=== PATIENT | female | born 1955 | race Caucasian/White ===

== ENCOUNTER 2022-02-09 10:54 | Outpatient (REF) | payer MEDICARE, SELFPAY ==
[2022-02-09 11:08] LABS: MANUAL DIFF FLAG NO
[2022-02-09 11:54] LABS: Basophils Percent Auto 0.5 % (0-2); Eosinophils Percent Auto 0.5 % (0-4); Hematocrit 40.2 % (37.0-47.0); Hemoglobin 13.2 g/dl (12.0-16.0); Imm Gran Abs Auto 0.02 X10*3/uL (0.00-0.03); Imm Gran Pct Auto 0.3 % (0.0-0.4); Lymphocytes Absolute Auto 1.9 X10*3/uL (1.2-4.9); Lymphocytes Percent Auto 29.6 % (20-40); Mean Corpuscular HGB Conc 32.8 g/dl (31.0-35.0); Mean Corpuscular Volume 94.4 fL (80.0-98.0); Mean Platelet Volume 9.2 fL (9.4-12.3); Monocytes Absolute Auto 0.6 X10*3/uL (0.1-1.2); Monocytes Percent Auto 10.1 % (2-11); Neutrophils Absolute Auto 3.7 x10*3/uL (2.0-8.3); Platelet Count 260 X10*3/uL (160-400); Red Blood Count 4.26 X10*6/uL (4.20-5.50); Red Cell Distribution Width 13.2 % (11.0-16.0); White Blood Count 6.3 X10*3/uL (4.8-10.8)
[2022-02-09 12:30] LABS: Anion Gap 14 (12-20); Blood Urea Nitrogen 16 mg/dL (9-16); Calcium 9.5 mg/dL (8.4-10.2); Carbon Dioxide 30 mmol/L (22-29); Chloride 99 mmol/L (96-108); Estimated Glomerular Filt Rate > 60; Glucose Random 96 mg/dL (60-115); Iron 71 mcg/dL (30-160); Percent Iron Saturation 21 % (15-50); Potassium 5.1 mmol/L (3.3-5.1); Sodium 138 mmol/L (135-145); Total Iron Binding Capacity 334 mcg/dL (228-428); Unsaturated Iron Binding 263 ug/dL
[2022-02-09 12:34] LABS: Thyroid Stimulating Hormone 0.76 uIU/mL (0.32-4.0)
== END 2022-02-09 10:55 | disposition home or self-care (01) ==
LOC: HO.LAB 10:54
PROVIDERS: Visit Provider Psychiatry & Neurology Neurology
DX: I63.9 Cerebral infarction, unspecified (principal); M79.7 Fibromyalgia
CPT/HCPCS: 36415; 80048; 83540; 84443; 85025

== ENCOUNTER 2024-10-14 15:21 | Outpatient (REF) | payer MEDICARE, SELFPAY ==
--- OUTSIDE RECORDS SUMMARY | 2024-10-14 16:21 | XMS_ITS | Clinical Summary ---
Author Organization [facility] Address [address] [place] [address] Phone Care Team Providers Care Sap Senior Developer Name Role Phone Trever Meeks MD Primary Care Provider [phone] Allergies Active Allergy Reactions Criticality Noted Date Comments Meperidine 01/28/2022 Medications aspirin 81 mg EC tablet Take 81 mg by mouth daily. Active atorvastatin (LIPITOR) 20 mg tablet Take 20 mg by mouth daily. Active cholecalciferol , vitamin D3, 75 mcg (3,000 unit) tablet Take by mouth. Active divalproex (DEPAKOTE) [address] tablet Take 500 mg by mouth 2 (two) times a day. 12/03/2021 Active FLUoxetine (PROzac) 20 mg capsule Take 1 capsule (20 mg total) by mouth 1 (one) time each day. 01/08/2022 Active gabapentin (NEURONTIN) 600 mg tablet Take 1.5 tablets (900 mg total) by mouth daily. Active traZODone (DESYREL) 50 mg tablet TAKE 1 TABLET BY MOUTH EVERY DAY AT BEDTIME FOR 30 DAYS 11/22/2021 Active exemestane (AROMASIN) 25 mg tablet Take 1 tablet (25 mg total) by mouth every other day 45 tablet 08/15/2024 5 Active amLODIPine (NORVASC) 10 mg tablet Take 1 tablet (10 mg total) by mouth 1 (one) time each day. 30 each 09/15/2024 5 Active Active Problems Problem Noted Date Diagnosed Date Fibromyalgia 08/15/2024 Malignant neoplasm of upper- outer quadrant of left breast in female, estrogen receptor positive 05/17/2024 Intractable nausea 05/17/2024 Acute midline low back pain without sciatica Encounters Date Type Department Care Team Description 09/19/2024 12:27 PM EST - 09/19/2024 11:59 PM EST Hospital Encounter [facility] MRI [address] [place] [address] Cerebral infarction, unspecified (CMS/HCC) Discharge Disposition: Home or Self Care 09/15/2024 1:39 PM EST - 09/15/2024 11:21 PM EST Emergency [facility] Emergency [address] [place] [phone] Stephen Kulkarni MD Dizziness (Primary Dx) Discharge Disposition: Home or Self Care 08/15/2024 1:15 PM EST Office Visit [facility] Hematology Oncology [address] [place] [phone] Maylin Feliciano MD Malignant neoplasm of upper-outer quadrant of left breast in female, estrogen receptor positive (CMS/HCC) (Primary Dx); Acute midline low back pain without sciatica; Fibromyalgia 07/18/2024 Telephone [facility] Hematology Oncology [address] [place] [phone] Maylin Feliciano MD from Last 3 Months Immunizations Name Administration Dates Next Due Pfizer SARS-CoV-2 COVID-19, mRNA, LNP-S, preservative free 08/10/2021,10/30/2020,10/09/2020 Surgical History Surgery Date Site/Laterality Comments BREAST MASS EXCISION PROCEDURE:BREAST MASS EXCISION Medical History Medical History Date Comments History of stroke DX:History of stroke Hypertension DX:Hypertension Seizure disorder (CMS/HCC) DX:Se izure disorder (HCC) Stroke (CMS/HCC) DX:Stroke (HCC) Family History Medical History Relation Name Comments Cancer Mother Cancer Sister Relation Name Status Comments Mother Sister Social History Tobacco Use Types Packs/Day Years Used Date Smoking Tobacco: Former Cigarettes Q uit: 09/11/2021 Smokeless Tobacco: Never Alcohol Use Standard Drinks/Week Comments Yes 14 (1 standard drink = 0.6 oz pu re alcohol) Comments Unknown Sex and Gender Information Value Date Recorded Sex Assigned at Not on file Legal Sex Female 12:05 AM EST Gender Identity Not on file Sexual Orientation Not on file Obstetrics History Last Filed Vital Signs Vital Sign Reading Time Taken Comments Blood Pressure 181/72 09/15/2024 10:22 PM EST Pulse 69 09/15/2024 10:22 PM EST Temperature 37.1 ??C (98.8 ??F) 09/15/2024 4:15 PM ES T Respiratory Rate 20 09/15/2024 10:22 PM EST Oxygen Saturation 99% 09/15/2024 10:22 PM EST Inhaled Oxygen Concentration - - Weight 70.3 kg (155 lb) 09/15/2024 11:59 AM EST Height 160 cm (5' 3 ) 09/15/2024 11:59 AM EST Body Mass Index 27.46 09/15/2024 11:59 AM EST Plan of Treatment Upcoming Encounters Date Type Department Care Team (Late st Contact Info) Description 11/13/2024 11:00 AM EDT Office Visit [facility] Hematology Oncology [address] [place] [phone] Maylin Prasad MD [address] [place] [phone] 11/28/2024 1:40 PM EDT Office Visit [facility] [address] [place] [phone] Ilsa Red MD [address] [place] [address] [address] [place] [address] 12/25/2024 1:00 PM EDT [facility]ointment [facility] at [address] [phone] Health Maintenance Due Date Last Done Comments Zoster Vaccines (1 of 2) 1973 RSV Immunization Patients 60+ Years Old (1 - Risk 60-74 years 1-dose series) 2014 DTaP,Tdap,and Td Vaccines (2 - Td or Tdap) 03/08/2020 02/09/2020 Cholesterol Screening (Lipid Panel) 08/13/2022 Colorectal Cancer Screening: Colonoscopy 08/13/2022 Depression Screening 08/13/2022 Falls Risk Assessment 08/13/2022 Hepatitis C Screening 08/13/2022 Social Influencers of Health Screening 08/13/2022 Medicare Annual Wellness Visit 05/25/2023 05/25/2022 COVID-19 Vaccine ( season) 2024 06/22/2022, 08/10/2021, 10/30/2020, Additional history exists Influenza Vaccine (#1) 2024 3, 06/22/2022, 09/12/2021, Additional history exists Breast Cancer Screening 06/26/2025 06/26/20 23, 12/03/2021, 07/27/2020 Hypertension/CHF/CAD Annual BMP Blood Test 09/15/2025 09/15/2024 Osteoporosis Screening (Bone Density Screening) 03/22/2032 03/22/2022 Pneumococcal Vaccine: 50+ Years Completed 05/30/2023, 11/14/2019 HIB Vaccines Aged Out No longer eligi ble based on patient's age to complete this topic HPV Vaccines Aged Out No longer eligi ble based on patient's age to complete this topic Hepatitis A Vaccines Aged Out No long er eligible based on patient's age to complete this topic Hepatitis B Vaccines Aged Out No long er eligible based on patient's age to complete this topic IPV Vaccines Aged Out No longer eligi ble based on patient's age to complete this topic MMR Vaccines Aged Out No longer eligi ble based on patient's age to complete this topic Meningococcal ACWY Vaccine Aged Out N o longer eligible based on patient's age to complete this topic Meningococcal B Vacine Aged Out No lo nger eligible based on patient's age to complete this topic RSV Immunization Patients Under 20 months Aged Out No longer eligible based on patient's age to complete this topic Varicella Vaccines Aged Out No longer eligible based on patient's age to complete this topic Procedures Procedure Name Priority Date/Time Associated Diagnosis Comments MR BRAIN WO CONTRAST Routine 09/19/2024 2:46 PM EST Cerebral infarction, unspecified (CMS/HCC) POCT GLUCOSE BLOOD Routine 09/15/2024 4: [address] ANGIO HEAD/NECK WO AND/OR W CONTRAST STAT 09/15/2024 3:15 PM EST PROTHROMBIN TIME WITH INR STAT 09/15/2024 2:07 PM EST TROPONIN I HIGH SENSITIVITY STAT 09/15/2024 2:07 PM EST CBC WITH AUTO DIFFERENTIAL STAT 09/15/2024 11:55 AM EST VALPROIC ACID LEVEL, TOTAL STAT 09/15/2024 11:55 AM EST TROPONIN I HIGH SENSITIVITY STAT 09/15/2024 11:55 AM EST MAGNESIUM STAT 09/15/2024 11:55 AM EST BASIC METABOLIC PANEL STAT 09/15/2024 11:55 AM EST CBC AND DIFFERENTIAL STAT 09/15/2024 11:55 AM EST ECG 12-LEAD STAT 09/15/2024 11:51 AM EST ECG ANNOTATED 09/15/2024 [facility] DEXA AXIAL SKELETON Routine 03/22/2022 4:15 PM EDT Asymptomatic menopausal state [facility] SCREENING DIGITAL Routine 12/03/2021 3:13 PM EDT Encounter for screening mammogram for malignant neoplasm of breast from Last 3 Months or Most Recently Relevant to Health Maintenance Results * MR Brain wo Contrast (09/19/2024 2:46 PM EST) Anatomical Region Laterality Modality Head and Neck Magnetic Resonan ce 09/20/2024 11:2 3 AM EST Impressions 09/20/2024 11:35 AM EST Impression: No acute intracranial findings. Small area of encephalomalacia in the left thalamus compatible with a previous small vessel infarct. ??This appears similar to the comparison CT on 09/15/2024. Mild chronic microvascular ischemic changes of the supratentorial white matter. -------- FINAL REPORT -------- Dictated By: Keshawn Patel Dictated Date: 09/20/2024 11:23 ET Assigned Physician: Keshawn Patel Reviewed and Electronically Signed By: Keshawn Patel Signed Date: 09/20/2024 11:35 ET Workstation ID: [id number] Transcribed By: Self Edit Transcribed Date: 09/20/2024 11:24 ET Narrative 09/20/2024 11:35 AM EST PROCEDURE: Noncontrast MRI of the brain. HISTORY: THALAMIC INFARCTION. COMPARISON: CT 09/15/2024. TECHNIQUE: Multiplanar multisequence MRI of the brain without intravenous contrast administration. FINDINGS: BRAIN: No diffusion abnormality. ??No mass or extra-axial fluid collection. ??No hydrocephalus. ??The major intracranial flow voids are preserved. Age commensurate ventricles and sulci. ??Foci of T2 prolongation in the supratentorial white matter are nonspecific but likely sequela of mild chronic microvascular ischemic disease. ??Small area of encephalomalacia suggesting sequela of a previous infarct in the left thalamus, unchanged compared with the 09/15/2024 CT. ORBITS: Normal. SINUSES/MASTOIDS: Hypoplastic frontal sinuses. ??Minimal mucosal thickening in the frontal sinuses, ethmoid air cells, and maxillary antra. ??Small mucous retention cysts in the left maxillary antrum. ??Trace bilateral mastoid fluid. CALVARIUM: Normal. OTHER: The visualized skull base soft tissues are normal. ??Partially visible degenerative changes of the cervical spine. Procedure Note Keshawn Patel MD - 09/20/2024 PROCEDURE: Noncontrast MRI of the brain. HISTORY: THALAMIC INFARCTION. COMPARISON: CT 09/15/2024. TECHNIQUE: Multiplanar multisequence MRI of the brain without intravenouscontrast administration. FINDINGS: BRAIN: No diffusion abnormality. No mass or extra-axial fluid collection.No hydrocephalus. The major intracranial flow voids are preserved. Agecommensurate ventricles and sulci. Foci of T2 prolongation in thesupratentorial white matter are nonspecific but likely sequela of mildchronic microvascular ischemic disease. Small area of encephalomalaciasuggesting sequela of a previous infarct in the left thalamus, unchangedcompared with the 09/15/2024 CT. ORBITS: Normal. SINUSES/MASTOIDS: Hypoplastic frontal sinuses. Minimal mucosal thickeningin the frontal sinuses, ethmoid air cells, and maxillary antra. Smallmucous retention cysts in the left maxillary antrum. Trace bilateralmastoid fluid. CALVARIUM: Normal. OTHER: The visualized skull base soft tissues are normal. Partiallyvisible degenerative changes of the cervical spine. IMPRESSION: Impression: No acute intracranial findings. Small area of encephalomalacia in the left thalamus compatible with aprevious small vessel infarct. This appears similar to the comparison CTon 09/15/2024. Mild chronic microvascular ischemic changes of the supratentorial whitematter. -------- FINAL REPORT -------- Dictated By: Keshawn Patel Dictated Date: 09/20/2024 11:23 ET Assigned Physician: Keshawn Patel Reviewed and Electronically Signed By: Keshawn Patel Signed Date: 09/20/2024 11:35 ET Workstation ID: [id number] Transcribed By: Self Edit Transcribed Date: 09/20/2024 11:24 ET Nicol Marrero NP IMG MRI PROCEDURES Final Result * (ABNORMAL) POCT Glucose, blood (09/15/2024 4:19 PM EST) Glucose POCT 103(H) 70 - 100 mg/dL 09/15/2024 4:19 PM EST [facility] Blood Capillary blood specimen / Unknown 09/15/2024 4:19 PM EST 09/15/2024 4:20 PM EST Stephen Kulkarni MD LAB POINT OF CARE TE ST DOCKED DEVICE UNSOLICITED RESULTS Final Result [facility] [address] [place] [address], [place] [phone] * CT Angio Head/Neck wo and/or w Contrast (09/15/2024 3:15 PM EST) Anatomical Region Laterality Modality Head and Neck Computed Tomogra phy 09/15/2024 3:35 PM EST Impressions 09/15/2024 3:46 PM EST 1. ??Brain appears normal without hemorrhage. 2. ??CT angiogram of the brain appears normal without occlusion or significant stenosis. 3. ??Beaded appearance of the internal carotid arteries bilaterally suggestive of fibromuscular dysplasia without significant stenosis. 4. ??Calcified plaque at the left carotid bulb with only minimal stenosis. -------- FINAL REPORT -------- Dictated By: Sixto Jimenez Dictated Date: 09/15/2024 15:35 ET Assigned Physician: Sixto Jimenez Reviewed and Electronically Signed By: Sixto Jimenez Signed Date: 09/15/2024 15:46 ET Workstation ID: [id number] Transcribed By: Self Edit Transcribed Date: 09/15/2024 15:35 ET Narrative 09/15/2024 3:[address] brain and CT angiogram of the head and neck. HISTORY: Dizziness Comparison: None Technique: Preliminary CT imaging of the brain performed without IV contrast followed by contrast enhanced dynamic thin section volumetric imaging through the brain and neck following injection of 90 mL Isovue 370. Axial source images of the brain follow by sagittal and coronal reformations and three-dimensional angiographic reformations created on an independent workstation by undersigned radiologist. DOSE: CTDIvol: 631/45.4/19.7/68.2mGy. ??Total exam DLP: 3440.8mGy-cm FINDINGS: CT brain with and without IV contrast: Brain appears within normal limits for age. ??Only minimal volume loss and white matter changes are noted. ??The ventricles are normal in size. ??Midbrain and cerebellum appear normal. ??Surrounding soft tissues appear normal. ??Paranasal sinuses are patent. ??Mastoid air cells are patent bilaterally. CT angiography of the brain: Intracranial vasculature appears patent. ??No thrombosis. ??No aneurysm or malformation. CT angiography of the neck: Mild plaque is noted at the left carotid bulb without significant stenosis. ??Both internal carotid arteries demonstrate a mildly beaded appearance without stenosis. ??Vertebral arteries appear normal bilaterally. Aortic arch appears normal. ??Subclavian arteries appear patent. Limited views of the lung apices appear within normal limits. ??Soft tissues of the neck appear normal. ??No significant lymphadenopathy. ??The glands of the neck appear normal. ??Degenerative changes of the spine. Procedure Note Sixto Jimenez MD - 09/15/[address] angiogram of the head and neck. HISTORY: Dizziness Comparison: None Technique: Preliminary CT imaging of the brain performed without IVcontrast followed by contrast enhanced dynamic thin section volumetricimaging through the brain and neck following injection of 90 mL [id number]. Axial source images of the brain follow by sagittal and coronalreformations and three-dimensional angiographic reformations created on anindependent workstation by undersigned radiologist. DOSE: CTDIvol: 631/45.4/19.7/68.2mGy. Total exam DLP: 3440.8mGy-cm FINDINGS: CT brain with and without IV contrast: Brain appears within normal limits for age. Only minimal volume loss andwhite matter changes are noted. The ventricles are normal in size.Midbrain and cerebellum appear normal. Surrounding soft tissues appearnormal. Paranasal sinuses are patent. Mastoid air cells are patentbilaterally. CT angiography of the brain: Intracranial vasculature appears patent. No thrombosis. No aneurysm ormalformation. CT angiography of the neck: Mild plaque is noted at the left carotid bulb without significantstenosis. Both internal carotid arteries demonstrate a mildly beadedappearance without stenosis. Vertebral arteries appear normalbilaterally. Aortic arch appears normal. Subclavian arteries appear patent. Limited views of the lung apices appear within normal limits. Softtissues of the neck appear normal. No significant lymphadenopathy. Theglands of the neck appear normal. Degenerative changes of the spine. IMPRESSION: 1. Brain appears normal without hemorrhage. 2. CT angiogram of the brain appears normal without occlusion orsignificant stenosis. 3. Beaded appearance of the internal carotid arteries bilaterallysuggestive of fibromuscular dysplasia without significant stenosis. 4. Calcified plaque at the left carotid bulb with only minimalstenosis. -------- FINAL REPORT -------- Dictated By: Sixto Jimenez Dictated Date: 09/15/2024 15:35 ET Assigned Physician: Sixto Jimenez Reviewed and Electronically Signed By: Sixto Jimenez Signed Date: 09/15/2024 15:46 ET Workstation ID: [id number] Transcribed By: Self Edit Transcribed Date: 09/15/2024 15:35 ET Stephen Kulkarni MD IMG CT PROCEDURES Final Result * Troponin I high sensitivity (09/15/2024 2:07 PM EST) Only the most recent of2 resultswithin the time period is included. [facility] High Sensitivity Troponin I 22 <=54 ng/L LAB CHEMISTRY METHOD 09/15/2024 2:36 PM EST [facility] Blood Venous blood specimen / Unknown Venipuncture / Unknown 09/15/2024 2:07 PM EST 09/15/2024 2:14 PM EST Narrative [facility] - 09/15/2024 2:36 PM EST High levels of biotin in samples may falsely decrease hsTroponin values. ??Use caution when interpreting hsTroponin results in patients taking biotin who exhibit renal impairment (eGFR <60) or in patients taking more than 20 mg/day of biotin. Stephen Kulkarni MD LAB BLOOD ORDERABLES Final Resu lt [facility] [address] [place] [address], [place] [phone] * Protime-INR (09/15/2024 2:07 PM EST) [facility] Protime 11.5 10.6 - 13.9 sec LAB COAGULATION METHOD 09/15/2024 2:26 PM EST [facility] INR 0.9 LAB COAGULATION METHOD 09/15/2024 2:26 PM EST [facility] Blood Venous blood specimen / Unknown Venipuncture / Unknown 09/15/2024 2:07 PM EST 09/15/2024 2:14 PM EST Stephen Carolina Kulkarni MD LAB BLOOD ORDERABLES Final Resu lt [facility] [address] [place] [address], * (ABNORMAL) CBC auto differential (09/15/2024 11:55 AM EST) WBC 9.3 4.8 - 10.8 K/mcL LAB HEMETOLOGY METHOD 09/15/2024 12:23 PM [facility] RBC 5.00(H) 3.80 - 4.80 M/mcL LAB HEMETOLOGY METHOD 09/15/2024 12:23 PM [facility] Hemoglobin 15.3 11.5 - 16.0 g/dL LAB HEMETOLOGY METHOD 09/15/2024 12:23 PM [facility] Hematocrit 46.2 35.0 - 47.0 % LAB HEMETOLOGY METHOD 09/15/2024 12:23 PM [facility] MCV 93.1 79.0 - 98.0 FL LAB HEMETOLOGY METHOD 09/15/2024 12:23 PM [facility] MCH 30.8 27.0 - 32.0 pcg LAB HEMETOLOGY METHOD 09/15/2024 12:23 PM [facility] MCHC 33.1 32.0 - 37.0 g/dL LAB HEMETOLOGY METHOD 09/15/2024 12:23 PM [facility] RDW 12.5 11.0 - 15.0 % LAB HEMETOLOGY METHOD 09/15/2024 12:23 PM [facility] Platelets 278 130 - 400 K/mcL LAB HEMETOLOGY METHOD 09/15/2024 12:23 PM [facility] MPV 8.9 7.0 - 11.0 FL LAB HEMETOLOGY METHOD 09/15/2024 12:23 PM [facility] NRBC 0.0 <1.0 % LAB HEMETOLOGY METHOD 09/15/2024 12:23 PM [facility] NRBC Absolute 0.00 <0.10 K/mcL LAB HEMETOLOGY METHOD 09/15/2024 12:23 PM [facility] Neutrophils Relative 69.4 % LAB HEMETOLOGY METHOD 09/15/2024 12:23 PM [facility] Lymphocytes Relative 19.8 % LAB HEMETOLOGY METHOD 09/15/2024 12:23 PM [facility] Monocytes Relative 9.9 % LAB HEMETOLOGY METHOD 09/15/2024 12:23 PM [facility] Eosinophils Relative 0.1 % LAB HEMETOLOGY METHOD 09/15/2024 12:23 PM [facility] Basophils Relative 0.3 % LAB HEMETOLOGY METHOD 09/15/2024 12:23 PM [facility] Immature Granulocytes Relative 0.5 % LAB HEMETOLOGY METHOD 09/15/2024 12:23 PM [facility] Neutrophils Absolute 6.48 1.50 - 7.00 K/mcL LAB HEMETOLOGY METHOD 09/15/2024 12:23 PM [facility] Lymphocytes Absolute 1.85 1.00 - 5.00 K/mcL LAB HEMETOLOGY METHOD 09/15/2024 12:23 PM [facility] Monocytes Absolute 0.92 0.20 - 1.00 K/mcL LAB HEMETOLOGY METHOD 09/15/2024 12:23 PM [facility] Eosinophils Absolute 0.01 0.00 - 0.50 K/mcL LAB HEMETOLOGY METHOD 09/15/2024 12:23 PM EST [facility] Basophils Absolute 0.03 0.00 - 0.20 K/[facility] LAB HEMETOLOGY METHOD 09/15/2024 12:23 PM EST [facility] Immature Granulocytes Absolute 0.05(H) 0.00 - 0.03 K/mcL LAB HEMETOLOGY METHOD 09/15/2024 12:23 PM EST [facility] Blood Venous blood specimen / Unknown Venipuncture / Unknown 09/15/2024 11:55 AM EST 09/15/2024 12:14 PM EST us Stephen Kulkarni MD LAB BLOOD ORDERABLES Final Resu lt [facility] [address] [place] [address], [place] [phone] * (ABNORMAL) Magnesium (09/15/2024 11:55 AM EST) Magnesium 1.6(L) 1.9 - 2.6 mg/dL LAB CHEMISTRY METHOD 09/15/2024 12:39 PM EST [facility] Blood Venous blood specimen / Unknown Venipuncture / Unknown 09/15/2024 11:55 AM EST 09/15/2024 12:14 PM EST us Stephen Kulkarni MD LAB BLOOD ORDERABLES Final Resu lt [facility] [address] [place] [address], [place] [phone] * Valproic acid level, total (09/15/2024 11:55 AM EST) Valproic Acid, Total 84 50 - 100 mcg/mL LAB CHEMISTRY METHOD 09/15/2024 12:39 PM EST [facility] Blood Venous blood specimen / Unknown Venipuncture / Unknown 09/15/2024 11:55 AM EST 09/15/2024 12:14 PM EST us Stephen Carolina Kulkarni MD LAB BLOOD ORDERABLES Final Resu lt [facility] [address] [place] [address], [place] [phone] * (ABNORMAL) Basic metabolic panel (09/15/2024 11:55 AM EST) Sodium 132(L) 133 - 145 mmol/L LAB CHEMISTRY METHOD 09/15/2024 12:39 PM [facility] Potassium 4.4 3.5 - 5.5 mmol/L LAB CHEMISTRY METHOD 09/15/2024 12:39 PM [facility] Chloride 97 96 - 110 mmol/L LAB CHEMISTRY METHOD 09/15/2024 12:39 PM [facility] CO2 31 21 - 32 mmol/L LAB CHEMISTRY METHOD 09/15/2024 12:39 PM [facility] Anion Gap 4 3 - 11 LAB CHEMISTRY METHOD 09/15/2024 12:39 PM [facility] Glucose 132(H) 70 - 100 mg/dL LAB CHEMISTRY METHOD 09/15/2024 12:39 PM [facility] BUN 10 5 - 25 mg/dL LAB CHEMISTRY METHOD 09/15/2024 12:39 PM [facility] Creatinine 0.81 0.50 - 1.10 mg/dL LAB CHEMISTRY METHOD 09/15/2024 12:39 PM [facility] eGFR 78 >=60 mL/min/1. 73m2 LAB CHEMISTRY METHOD 09/15/2024 12:39 PM [facility] Comment:Calculation based on the??Chronic Kidney Disease Epidemiology Collaboration (CKD-EPI) equation refit??without adjustment for race. BUN/Creatinine Ratio 12.3 LAB CHEMISTRY METHOD 09/15/2024 12:39 PM [facility] Calcium 9.9 8.5 - 10.5 mg/dL LAB CHEMISTRY METHOD 09/15/2024 12:39 PM EST [facility] Blood Venous blood specimen / Unknown Venipuncture / Unknown 09/15/2024 11:55 AM EST 09/15/2024 12:14 PM EST Stephen Kulkarni MD LAB BLOOD ORDERABLES Final Resu lt Performing Organization Address City/[facility]/ZIP Co de Phone Number [facility]) [facility] [address] [place] [address], [place] [phone] * ECG 12 lead (09/15/2024 11:51 AM EST) Ventricular Rate ECG 74 BPM GEMUSE Atrial Rate 74 BPM GEMUSE P-R Interval 126 ms GEMUSE QRS Duration 84 ms GEMUSE Q-T Interval 380 ms GEMUSE QTc 421 ms GEMUSE P Wave [place] 6 degrees GEMUSE R [place] 21 degrees GEMUSE T [place] 36 degrees GEMUSE ECG Interpretation Normal sinus rhythm Low voltage QRS Normal ECG When compared with ECG of 17-JAN-2022 07:59, No significant change was found Confirmed by Adri RODRIGUEZ, JOAQUINA ([id number]) on 09/15/2024 3:44:03 PM GEMUSE 09/15/2024 11:5 1 AM EST 09/15/2024 3:44 PM EST Stephen Kulkarni MD ECG ORDERABLES Final Result Performing Organization Address City/[facility]/ZIP Co de Phone Number GEMUSE * ECG-Annotated (09/15/2024) Provider Danna GRULLON ECG ORDERABLES Final Result * TAY DEXA AXIAL SKELETON (03/22/2022 4:15 PM EDT) Anatomical Region Laterality Modality Mammography 03/22/2022 9:59 AM EDT Narrative 03/22/2022 4:15 PM EDT [id number] [facility] Diagnostic Imaging Department [address] [place] [address] Patient: ??MABEL MCCOY David ?/Age/Sex: 1955 - 66 - F Unit#: ??[id number] ? Location/Status: ??SPDIMAM/REG CLI ? Mnemonic/Ordering Site: ??MAMDEXAAX/SPMAM Ordering Physician: ??MAYLIN VERA MD [facility] Dexa Axial Skeleton - 03/22/22 - 1029 [facility] Dexa Axial Skeleton INDICATION: Postmenopausal, history of breast Technique: Bone densitometry was performed utilizing dual energy x-ray absorptiometry (DEXA). The lumbar spine is evaluated in the AP projection from L1 through L4, though L3 was omitted because of endplate sclerosis. The proximal femora are evaluated in the AP projection bilaterally. The patient is taking vitamin D supplements. COMPARISON: None FINDINGS: AP spine: Bone mineral density: 1.192 gm/cm2 T-score: 0.2 Right femoral neck: Bone mineral density: 0.861 gm/cm2 T-score: -1.4 IMPRESSION: Findings suggesting osteopenia, placing the patient at risk for fracture. The FRAX result suggests a 10 year probability of major osteoporotic fracture of 15 % and hip fracture of 1.4%. 10 year probability of osteoporotic fracture may be lower than FRAX estimate if patient has received treatment. [id number] Dictating Physician: ??BIRDIE TORRES MD Electronically Signed by: ??BIRDIE TORRES MD Dic Date/Time: ??03/22/22 1614 Sign date/Time: ??03/22/22 1615 Procedure Note Birdie Torres MD - 08/24/2022 [facility] Diagnostic Imaging Department [address] [place] [id number] Patient: MABEL MCCOY D.O.B./Age/Sex: 1955 - 66 - F Unit#: [id number] Location/Status: SPDIMA/REG CLI [facility] Ordering Physician: MAYLIN VERA MD [facility] Dexa Axial Skeleton - 03/22/22 - 1029 [facility] Dexa Axial Skeleton INDICATION: Postmenopausal, history of breast Technique: Bone densitometry was performed utilizing dual energy x-ray absorptiometry (DEXA). The lumbar spine is evaluated in the AP projectionfrom L1 through L4, though L3 was omitted because of endplate sclerosis. Theproximal femora are evaluated in the AP projection bilaterally. The patient is taking vitamin D supplements. COMPARISON: None FINDINGS: AP spine: Bone mineral density: 1.192 gm/cm2 T-score: 0.2 Right femoral neck: Bone mineral density: 0.861 gm/cm2 T-score: -1.4 IMPRESSION: Findings suggesting osteopenia, placing the patient at risk forfracture. The FRAX result suggests a 10 year probability of major osteoporoticfracture of 15 % and hip fracture of 1.4%. 10 year probability of osteoporotic fracture may be lower than FRAXestimate if patient has received treatment. [id number] Dictating Physician: BIRDIE TORRES MD Electronically Signed by: BIRDIE TORRES MD Dic Date/Time: 03/22/22 161 Sign date/Time: 03/22/22 161 Maylin Prasad MD IMG BI PROCEDURES F inal Result * TAY SCREENING DIGITAL (12/03/2021 3:13 PM EDT) Anatomical Region Laterality Modality Mammography 12/03/2021 1:38 PM EDT Narrative 12/03/2021 3:13 PM EDT [facility] Diagnostic Imaging Department [address] [place], [place] [id number] Patient: ??MABEL MCCOY ?/Age/Sex: 1955 - 66 - F Unit#: ??[id number] ? Location/Status: ??SPDIMAM/REG CLI ? Mnemonic/Ordering Site: ??DIGSC/SPMAM Ordering Physician: ??TREVER MEEKS MD Tay Screening Digital - 12/03/21 - 1416 EXAM: Tay Screening Digital EXAM DATE AND TIME: 12/03/2021 2:18 PM HISTORY: ??Screening. Excisional biopsy of the right breast in 2011, pathology benign. Mother had breast carcinoma at age 90. COMPARISON: ??07/27/20, 05/29/17, 06/11/15 TECHNIQUE: CC and MLO views of both breasts were obtained using full field digital mammography. Bilateral digital breast tomosynthesis was performed in the MLO projection. Computer aided detection with the GFI Software 7.2-H was employed. TISSUE DENSITY: b. There are scattered areas of fibroglandular density. FINDINGS: A 6 mm round asymmetry is seen in the upper anterior left breast on the MLO views, close to the skin line, equivocally seen straight back from the nipple in the CC view. CC tomosynthesis views are recommended for further assessment, to be followed by targeted ultrasound. Mild asymmetry in the anterior right breast is unchanged and consistent with surgical scar. grouped microcalcifications or areas of architectural distortion are seen. The skin and vascularity are unremarkable. IMPRESSION: 1. Left breast asymmetry, for which additional views and targeted ultrasound are recommended. The patient will be called back. 2. Stable mammographic appearance of the right breast. No evidence of malignancy is seen. BI-RADS: ??Category 0: Incomplete - Need Additional Imaging Evaluation RECOMMENDATION(S): 1: Special mammographic view(s) needed LEFT 2: Ultrasound LEFT 21061, [id number] 3340F, 7025F Dictating Physician: ??JACI SALAS MD Electronically Signed by: ??JACI SALAS MD Dic Date/Time: ??12/03/21 1511 Sign date/Time: ??12/03/21 1513 Procedure Note Jaci Salas MD - 08/24/2022 [facility] Diagnostic Imaging Department [address] [place] [address] Patient: JUAREZMABEL DAVIS David BoothB./Age/Sex: 1955 - 66 - F Unit#: [id number] Location/Status: [facility] CLI Mnemonic/Ordering Site: [facility] Ordering Physician: TREVER MEEKS MD [facility] Screening Digital - 12/03/21 - 141 EXAM: [facility] Screening Digital EXAM DATE AND TIME: 12/03/2021 2:18 PM HISTORY: Screening. Excisional biopsy of the right breast in 2011,pathology benign. Mother had breast carcinoma at age 90. COMPARISON: 07/27/20, 05/29/17, 06/11/15 TECHNIQUE: CC and MLO views of both breasts were obtained using fullfield digital mammography. Bilateral digital breast tomosynthesis was performedin the MLO projection. Computer aided detection with the GFI Software 7.2-Planet Dailyas employed. TISSUE DENSITY: b. There are scattered areas of fibroglandular density. FINDINGS: A 6 mm round asymmetry is seen in the upper anterior left breast on theMLO views, close to the skin line, equivocally seen straight back from thenipple in the CC view. CC tomosynthesis views are recommended for furtherassessment, to be followed by targeted ultrasound. Mild asymmetry in the anterior right breast is unchanged and consistentwith surgical scar. grouped microcalcifications or areas of architecturaldistortion are seen. The skin and vascularity are unremarkable. IMPRESSION: 1. Left breast asymmetry, for which additional views and targetedultrasound are recommended. The patient will be called back. 2. Stable mammographic appearance of the right breast. No evidence of malignancy is seen. BI-RADS: Category 0: Incomplete - Need Additional Imaging Evaluation RECOMMENDATION(S): 1: Special mammographic view(s) needed LEFT 2: Ultrasound LEFT 27737, [id number] 3340F, 7025F Dictating Physician: JACI SALAS MD Electronically Signed by: JACI SALAS MD Dic Date/Time: 12/03/21 1511 Sign date/Time: 12/03/21 1513 Trever Meeks MD IMG BI PROCEDURES Final Result from Last 3 Months or Most Recently Relevant to Health Maintenance Insurance MEDICARE [facility] Advance Directives Documents on File Type Date Recorded Patient Director Community Organization Expl anation Health Care Decision (hx) 01/17/2022 AD BOO DIRECTIVE Health Care Decision (hx) 01/17/2022 AD BOO DIRECTIVE Health Care Decision (hx) 01/17/2022 AD BOO DIRECTIVE Health Care Decision (hx) 01/17/2022 AD BOO DIRECTIVE Health Care Decision (hx) 01/17/2022 AD BOO DIRECTIVE Health Care Decision (hx) 01/17/2022 AD BOO DIRECTIVE Health Care Decision (hx) 01/17/2022 AD BOO DIRECTIVE Health Care Decision (hx) 01/17/2022 AD BOO DIRECTIVE Health Care Decision (hx) 01/17/2022 AD BOO DIRECTIVE Health Care Decision (hx) 01/17/2022 AD BOO DIRECTIVE Health Care Decision (hx) 01/17/2022 AD BOO DIRECTIVE Health Care Decision (hx) 01/17/2022 AD BOO DIRECTIVE Health Care Decision (hx) 01/17/2022 AD BOO DIRECTIVE Health Care Decision (hx) 01/17/2022 AD BOO DIRECTIVE Health Care Decision (hx) 01/17/2022 AD BOO DIRECTIVE Health Care Decision (hx) 01/17/2022 AD BOO DIRECTIVE Health Care Decision (hx) 01/17/2022 AD BOO DIRECTIVE Health Care Decision (hx) 01/17/2022 AD BOO DIRECTIVE Health Care Decision (hx) 01/17/2022 AD BOO DIRECTIVE Health Care Decision (hx) 01/17/2022 AD BOO DIRECTIVE Health Care Decision (hx) 01/17/2022 AD BOO DIRECTIVE Health Care Decision (hx) 01/17/2022 AD BOO DIRECTIVE Health Care Decision (hx) 01/17/2022 AD BOO DIRECTIVE Health Care Decision (hx) 12/04/2013 AD BOO DIRECTIVE Health Care Decision (hx) 12/04/2013 AD BOO DIRECTIVE Health Care Decision (hx) 12/04/2013 AD BOO DIRECTIVE Health Care Decision (hx) 12/04/2013 AD BOO DIRECTIVE Health Care Decision (hx) 12/04/2013 AD BOO DIRECTIVE Health Care Decision (hx) 12/04/2013 AD BOO DIRECTIVE Health Care Decision (hx) 12/04/2013 AD BOO DIRECTIVE Health Care Decision (hx) 12/04/2013 AD BOO DIRECTIVE Health Care Decision (hx) 12/04/2013 AD BOO DIRECTIVE Health Care Decision (hx) 12/04/2013 AD BOO DIRECTIVE Health Care Decision (hx) 12/04/2013 AD BOO DIRECTIVE Health Care Decision (hx) 12/04/2013 AD BOO DIRECTIVE Health Care Decision (hx) 12/04/2013 AD BOO DIRECTIVE Health Care Decision (hx) 12/04/2013 AD BOO DIRECTIVE Health Care Decision (hx) 12/04/2013 AD BOO DIRECTIVE Health Care Decision (hx) 12/04/2013 AD BOO DIRECTIVE Health Care Decision (hx) 12/04/2013 AD BOO DIRECTIVE Health Care Decision (hx) 12/04/2013 AD BOO DIRECTIVE Health Care Decision (hx) 12/04/2013 AD BOO DIRECTIVE Health Care Decision (hx) 12/04/2013 AD BOO DIRECTIVE Health Care Decision (hx) 12/04/2013 AD BOO DIRECTIVE Health Care Decision (hx) 12/04/2013 AD BOO DIRECTIVE Health Care Decision (hx) 12/04/2013 AD BOO DIRECTIVE Health Care Decision (hx) 12/04/2013 AD BOO DIRECTIVE Health Care Decision (hx) 12/04/2013 AD BOO DIRECTIVE Health Care Decision (hx) 12/04/2013 AD BOO DIRECTIVE Health Care Decision (hx) 12/04/2013 AD BOO DIRECTIVE Health Care Decision (hx) 12/04/2013 AD BOO DIRECTIVE Health Care Decision (hx) 12/04/2013 AD BOO DIRECTIVE Health Care Decision (hx) 12/04/2013 AD BOO DIRECTIVE Health Care Decision (hx) 12/04/2013 AD BOO DIRECTIVE Health Care Decision (hx) 12/04/2013 AD BOO DIRECTIVE Care Teams Sap Senior Developer Relationship Specialty Start Date End Date Trever Meeks MD [address] [place] [address] PCP - General Internal Medicine 01/06/22
--- OUTSIDE RECORDS SUMMARY | 2024-10-14 16:21 | XMS_ITS | Clinical Summary ---
Author Organization [facility] Address [address] [place] [address] Care Team Providers Care Peanut Farmer Name Role Phone Trever Meeks MD Primary Care Provider [phone] Allergies Active Allergy Reactions Criticality Noted Date Comments Meperidine 01/28/2022 Medications Medication Sig Dispensed Refills Start Date End Date Status traZODone (DESYREL) 50 MG tablet TAKE 1 TABLET BY MOUTH EVERY DAY AT BEDTIME FOR 30 DAYS 0 11/22/2021 Active FLUoxetine (PROzac) 20 MG capsule TAKE 1 CAPSULE BY MOUTH EVERY DAY FOR 90 DAYS 0 01/08/2022 Active aspirin EC 81 MG tablet Take 1 tablet (81 mg total) by mouth daily. 0 Active divalproex (DEPAKOTE) [address] tablet Take 2 tablets (500 mg total) by mouth 2 (two) times a day. 0 12/03/2021 Active Cholecalciferol (Vitamin D3) 75 MCG (3000 UT) TABS Take by mouth. 0 Active gabapentin (NEURONTIN) 600 MG tablet Take 1.5 tablets (900 mg total) by mouth daily. 0 Active atorvastatin (LIPITOR) tablet 20 mg Take 1 tablet (20 mg total) by mouth daily. 0 Active exemestane (AROMASIN) 25 MG tablet TAKE 1 TABLET (25 MG TOTAL) BY MOUTH DAILY. 90 tablet 3 05/01/2024 Active Active Problems Problem Noted Date Diagnosed Date Intractable nausea 04/30/2024 Acute midline low back pain without sciatica Malignant neoplasm of upper- outer quadrant of left breast in female, estrogen receptor positive 01/28/2022 H/O: CVA (cerebrovascular accident) 01/28/2022 Family History Medical History Relation Name Comments Cancer Mother Cancer Sister Relation Name Status Comments Mother Sister Social History Tobacco Use Types Packs/Day Years Used Date Smoking Tobacco: Former Cigarettes Q uit: 09/11/2021 Smokeless Tobacco: Never Alcohol Use Standard Drinks/Week Comments Yes 14 (1 standard drink = 0.6 oz pu re alcohol) Sex and Gender Information Value Date Recorded Sex Assigned at Not on file Gender Identity Not on file Sexual Orientation Not on file Job Start Date Occupation Industry Not on file Not on file Not on file Last Filed Vital Signs Vital Sign Reading Time Taken Comments Blood Pressure 142/73 04/29/2024 2:50 PM EDT Pulse 73 04/29/2024 2:50 PM EDT Temperature 36.9 ??C (98.4 ??F) 04/29/2024 2:50 PM ED T Respiratory Rate - - Oxygen Saturation 100% 04/29/2024 2:50 PM EDT Inhaled Oxygen Concentration - - Weight 69.5 kg (153 lb 3.2 oz) 04/29/2024 2:50 P M EDT Height 158.8 cm (5' 2.5 ) 03/03/2023 11:30 AM ED T Body Mass Index 27.57 03/03/2023 11:30 AM EDT Plan of Treatment Health Maintenance Due Date Last Done Comments Hepatitis C Screening 1955 Pneumococcal Vaccine (1 of 2 - PCV) 1960 Depression Screening 1966 BMI Counseling 1972 Preventative Health Evaluation 1972 DTap / Tdap / Td (1 - Tdap) 1973 Shingrix-Zoster Vaccine (1 o f 2) 1973 Colon Cancer Screening (Colonoscopy) 1999 Breast Cancer Screening (Mammogram) 2004 Fall Risk Assessment 2019 Osteoporosis Screening (DEXA Scan) 2019 COVID-19 Vaccine (4 - 2023-2 5 season) 2024 08/10/2021, 10/30/2020, 10/09/2020 Influenza Vaccine (#1) 2024 09/12/2021 RSV Adult > 60+ Yrs or (1 - 1-dose 75+ series) 2029 Hepatitis B Vaccines Aged Out No long er eligible based on patient's age to complete this topic RSV Ped < 20 months Aged Out No longe r eligible based on patient's age to complete this topic Care Teams Peanut Farmer Relationship Specialty Start Date End Date Trever Meeks MD [address] [place] [address] PCP - General Internal Medicine 01/28/22
--- OUTSIDE RECORDS SUMMARY | 2024-10-14 16:21 | XMS_ITS | Encounter Summary ---
Author Organization [facility] [place] [address] Care Team Providers Care Burglary Investigator Name Role Phone Trever Meeks MD Primary Care Provider [phone] Reason for Referral * Imaging (Routine) - Pending Review Specialty Diagnoses / Procedures Referred By Contac t Referred To Contact Radiology Diagnoses Cerebral infarction, unspecified (CMS/HCC) Procedures MR Brain wo Contrast Nicol Marrero NP [address] [place] [address] [place] [phone] Phone: tel: fax: [facility] Referral ID Status Reason Start Date Expiration Date V isits Requested Visits Authorized [id number] Pending Review 09/19/2024 09/19/2025 1 1 Reason for Visit * Imaging (Routine) - Pending Review Specialty Diagnoses / Procedures Referred By Contac t Referred To Contact Radiology Diagnoses Cerebral infarction, unspecified (CMS/HCC) Procedures MR Brain wo Contrast Nicol Marrero NP [address] [place] [address] [place] [phone] Phone: tel: fax: [facility] Referral ID Status Reason Start Date Expiration Date V isits Requested Visits Authorized [id number] Pending Review 09/19/2024 09/19/2025 1 1 Encounter Details Date Type Department Care Team (Latest Contact Info) Description 09/19/2024 12:27 PM EST - 09/19/2024 11:59 PM EST Hospital Encounter [facility] MRI [address] [place] [address] Cerebral infarction, unspecified (CMS/HCC) Discharge Disposition: Home or Self Care Social History Tobacco Use Types Packs/Day Years [...] on file Sexual Orientation Not on file documented as of this encounter Medications at Time of Discharge amLODIPine (NORVASC) 10 mg tablet Take 1 tablet (10 mg total) by mouth 1 (one) time each day. 30 each 09/15/2024 10/15/2024 aspirin 81 mg EC tablet Take 81 mg by mouth daily. atorvastatin (LIPITOR) 20 mg tablet Take 20 mg by mouth daily. cholecalciferol, vitamin D3, 75 mcg (3,000 unit) tablet Take by mouth. divalproex (DEPAKOTE) [address] tablet Take 500 mg by mouth 2 (two) times a day. 12/03/2021 exemestane (AROMASIN) 25 mg tablet Take 1 tablet (25 mg total) by mouth every other day 45 tablet 08/15/2024 11/13/2024 FLUoxetine (PROzac) 20 mg capsule Take 1 capsule (20 mg total) by mouth 1 (one) time each day. 01/08/2022 gabapentin (NEURONTIN) 600 mg tablet Take 1.5 tablets (900 mg total) by mouth daily. traZODone (DESYREL) 50 mg tablet TAKE 1 TABLET BY MOUTH EVERY DAY AT BEDTIME FOR 30 DAYS 11/22/2021 documented as of this encounter Discharge Disposition Disposition Code Departure Means Destination Home or Self Care documented in this encounter Plan of Treatment Upcoming Encounters Date Type Department Care Team (Late st Contact Info) Description 11/13/2024 11:00 AM EDT Office Visit [facility] Hematology Oncology [address] [place] [phone] Nathaniel Prasad MD [address] [place] [phone] 11/28/2024 1:40 PM EDT Office Visit [facility] - [address] [place] [address] Ilsa Red MD [address] [facility] [address] [place] [address] 12/25/2024 1:00 PM EDT [facility]oint[facility] [address] [phone] documented as of this encounter Procedures Procedure Name Priority Date/Time Associated Diagnosis Comments MR BRAIN WO CONTRAST Routine 09/19/2024 2:46 PM EST Cerebral infarction, unspecified ([facility]) documented in this encounter Results * MR Brain wo Contrast (09/19/2024 [...] Signed Date: 09/20/2024 11:35 ET Workstation ID: [id number] Transcribed By: Self Edit Transcribed Date: 09/20/2024 [...] Signed Date: 09/20/2024 11:35 ET Workstation ID: [id number] Transcribed By: Self Edit Transcribed Date: 09/20/2024 11:24 ET Nicol Marrero NP IMG MRI PROCEDURES Final Result documented in this encounter Visit Diagnoses Diagnosis Cerebral infarction, unspecified ([facility]/HCC) Encounter for screening mammogram for breast cancer documented in this encounter Care Teams Burglary Investigator Relationship Specialty Start Date End Date Trever Meeks MD [address] PCP - General Internal Medicine 01/06/22 documented as of this encounter
--- OUTSIDE RECORDS SUMMARY | 2024-10-14 16:21 | XMS_ITS | Encounter Summary ---
Author Organization [facility] [place] [address] Care Team Providers Care Bag Turner Name Role Phone Trever Meeks MD Primary Care Provider [phone] Reason for Visit * Reason Comments Dizziness Encounter Details Date Type Department Care Team (Late st Contact Info) Description 09/15/2024 1:39 PM EST - 09/15/2024 11:21 PM EST Emergency [facility] Emergency [address] [place] [address] Stephen Kulkarni MD [address] [place] [address] Dizziness (Primary Dx) Discharge Disposition: Home or Self Care Social [...] on file documented as of this encounter Last Filed Vital Signs Vital Sign Reading [...] Mass Index 27.46 09/15/2024 11:59 AM EST documented in this encounter Discharge Instructions * Discharge Instructions* Stephen Kulkarni MD - 09/15/2024 8:19 PM EST You were seen in the hospital for your dizziness. You had improvement in his symptoms. Your CT headand CT angiogram he did not show anything in the emergency department. Please call with your primary care doctor, as well as your neurologist. Consider having an outpatient MRI for neurologist feels a ppropriate. Please return if your symptoms worsen. * Attachments The following attachments cannot be sent through Care Everywhere. * Vertigo (French) documented in this encounter Medications at Time of Discharge [...] DAYS 11/22/2021 documented as of this encounter Ordered Prescriptions Prescription Sig Dispense Quantity Refills Last Filled Start Date End Date amLODIPine (NORVASC) 10 mg tablet Take 1 tablet (10 mg total) by mouth 1 (one) time each day. 30 each 09/15/2024 10/15/2024 documented in this encounter Discharge Disposition Disposition Code Departure Means Destination Comment s Home or Self Care Reviewed discharge and rx instructions, referred to follow up with pcp, self ambulated to exit with documented in this encounter Progress Notes * Gene Nassar RN - 09/15/2024 11:44 AM EST Pt presents from for stroke r/o, hx of stroke 2 years ago with mild right sided deficits. ChargePhysician assessed pt in [facility]. Pt c/o dizziness, htn, [facility]. 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 Patient reports that last Monday she started to have some nausea, dizziness which she describes as a room spinning like sensation, as well as right sided abdominal pain. She denies any significant vomiting, or any diarrhea. She denies any complaints of fevers, chills, chest pain, shortness of breath. She denies any dysuria, hematuria. This morning she woke up with a frontal headache; which has somewhat subsided ever since she took Tylenol this morning. She denies any new weakness aside from her baseline right-sided weakness or any new sensory deficits. Denies any trauma or falls. Past Medical History: No date: History of stroke Comment: DX:History of stroke No date: Hypertension Comment: DX:Hypertension No date: Seizure disorder (CMS/HCC) Comment: DX:Seizure disorder (HCC) No date: Stroke (CMS/[facility]) Comment: DX:Stroke (HCC) [place] Coma Scale Score: 15 Patient History Past Medical History: Diagnosis Date History of stroke DX:History of stroke Hypertension DX:Hypertension Seizure disorder (CMS/HCC) DX:Seizure disorder (HCC) Stroke (CMS/HCC) DX:Stroke (HCC) Past Surgical History: Procedure Laterality Date BREAST MASS EXCISION PROCEDURE:BREAST MASS EXCISION Family History Problem Relation Name Age of Onset Cancer Mother Cancer Sister Social History Tobacco Use Smoking status: Former Current packs/day: 0.00 Types: Cigarettes Quit date: 09/11/2021 Years since quittin.0 Smokeless tobacco: Never Substance Use Topics Alcohol use: Yes Alcohol/week: 14.0 standard drinks of alcohol Drug use: Yes Types: Marijuana/Cannabis Review of Systems Review of Systems Constitutional: Negative. HENT: Negative. Respiratory: Negative. Cardiovascular: Negative. Gastrointestinal: Negative. Musculoskeletal: Negative. Neurological: Positive for dizziness. Physical Exam ED Triage Vitals [09/15/24 1159] Temp Heart Rate Resp BP 36.3 ??C (97.4 ??F) 75 19 (!) 172/87 SpO2 Temp src Heart Rate Source Patient Position 95 % -- -- -- BP Location FiO2 (%) -- -- Physical Exam Constitutional: General: She is not in acute distress. Appearance: Normal appearance. She is not ill-appearing or toxic-appearing. HENT: Head: Normocephalic and atraumatic. Mouth/Throat: Mouth: Mucous membranes are moist. Eyes: Extraocular Movements: Extraocular movements intact. Conjunctiva/sclera: Conjunctivae normal. Cardiovascular: Rate and Rhythm: Normal rate and regular rhythm. Pulses: Normal pulses. Pulmonary: Effort: Pulmonary effort is normal. No respiratory distress. Breath sounds: Normal breath sounds. Abdominal: General: There is no distension. Palpations: Abdomen is soft. Tenderness: There is no abdominal tenderness. Musculoskeletal: General: Normal range of motion. Cervical back: Normal range of motion and neck supple. Right lower leg: No edema. Left lower leg: No edema. Skin: General: Skin is warm. Neurological: General: No focal deficit present. Mental Status: She is alert and oriented to person, place, and time. Mental status is at baseline. Cranial Nerves: No cranial nerve deficit. Sensory: No sensory deficit. Motor: No weakness. Coordination: Coordination normal. Gait: Gait normal. Psychiatric: Mood and Affect: Mood normal. ED Course & MDM Clinical Impressions as of 09/15/242019 Dizziness Medical Decision Making 69-year-old female presents with a chief complaint of dizziness. Patient has a nonfocal neuroexam. She does have a mild residual right-sided deficits which she has had since her previous stroke. 8:20 PM Patient has no symptoms at this time. Her CT head and CTA were negative. She has been having symptoms for 7 days, and should she be having a stroke, it should present on the CT imaging. Lab work is unremarkable. She has been hydrated. She is ambulating a steady gait to the bathroom. I have advised her to follow-up with a neurologist, and her neurologist and consider having an outpatient MRI if deemed appropriate. Patient was given strict return precautions. Patient understood and agreed with plan. Procedures Stephen Kulkarni MD 09/15/24 1417 Stephen Kulkarni MD 09/15/242019 Stephen Kulkarni MD 09/19/24 1445 documented in this encounter Plan of Treatment Upcoming Encounters Date Type Department Care Team (Late st Contact Info) Description 11/13/2024 11:00 AM EDT Office Visit [facility] Hematology Oncology [address] [place] [phone] Nathaniel Prasad MD [address] [place] [phone] 11/28/2024 1:40 PM EDT Office Visit [facility] [address] [place] [address] Ilsa Red MD [address] [place] [address] [address] [place] [address] 12/25/2024 1:00 PM EDT Appointment [facility] at [address] [phone] documented as of this encounter Procedures Procedure Name Priority Date/Time Associated Diagnosis Comments POCT GLUCOSE BLOOD Routine 09/15/2024 4: [address] ANGIO HEAD/NECK WO AND/OR W CONTRAST STAT 09/15/2024 3:15 PM EST TROPONIN I HIGH SENSITIVITY STAT 09/15/2024 2:07 PM EST PROTHROMBIN TIME WITH INR STAT 09/15/2024 2:07 PM EST TROPONIN I HIGH SENSITIVITY STAT 09/15/2024 11:55 AM EST CBC WITH AUTO DIFFERENTIAL STAT 09/15/2024 11:55 AM EST CBC AND DIFFERENTIAL STAT 09/15/2024 11:55 AM EST MAGNESIUM STAT 09/15/2024 11:55 AM EST VALPROIC ACID LEVEL, TOTAL STAT 09/15/2024 11:55 AM EST BASIC METABOLIC PANEL STAT 09/15/2024 11:55 AM EST ECG 12-LEAD STAT 09/15/2024 11:51 AM EST ECG ANNOTATED 09/15/2024 documented in this encounter Results * (ABNORMAL) POCT Glucose, blood (09/15/2024 4:19 PM EST) Glucose POCT 103(H) 70 - 100 mg/dL 09/15/2024 4:19 PM EST [facility] Blood Capillary blood specimen / Unknown 09/15/2024 4:19 PM EST 09/15/2024 4:20 PM EST us Stephen B Shad [facility] POINT OF CARE TE ST DOCKED DEVICE UNSOLICITED RESULTS Final Result [facility]) [facility] [address] [place] [address], [place] [phone] * CT Angio Head/Neck wo and/or w [...] Signed Date: 09/15/2024 15:46 ET Workstation ID: [id number] Transcribed By: Self Edit Transcribed Date: 09/15/2024 [...] and neck following injection of 90 mL [id number]. Axial source images of the brain follow [...] Signed Date: 09/15/2024 15:46 ET Workstation ID: [id number] Transcribed By: Self Edit Transcribed Date: 09/15/2024 15:35 ET [facility] B Shad [facility] IMG CT PROCEDURES Final Result * Protime-INR (09/15/2024 2:07 PM EST) [facility] Protime 11.5 10.6 - 13.9 sec LAB COAGULATION METHOD 09/15/2024 2:26 PM EST [facility] INR 0.9 LAB COAGULATION METHOD 09/15/2024 2:26 PM EST [facility] Blood Venous blood specimen / Unknown Venipuncture / Unknown 09/15/2024 2:07 PM EST 09/15/2024 2:14 PM EST [facility] B Shad [facility] BLOOD ORDERABLES Final Resu lt [facility] [address] [place] [address], * Troponin I high sensitivity (09/15/2024 2:07 PM EST) [facility] High Sensitivity Troponin I 22 <=54 ng/L LAB CHEMISTRY METHOD 09/15/2024 2:36 PM EST [facility] Blood Venous blood specimen / Unknown Venipuncture / Unknown 09/15/2024 2:07 PM EST 09/15/2024 2:14 PM EST Narrative [facility] - 09/15/2024 2:36 PM EST High levels of biotin in samples may falsely decrease hsTroponin values. ??Use caution when interpreting hsTroponin results in patients taking biotin who exhibit renal impairment (eGFR <60) or in patients taking more than 20 mg/day of biotin. Stephen Carolina Kulkarni MD LAB BLOOD ORDERABLES Final Resu lt [facility] [address] [place] [address], * (ABNORMAL) CBC auto differential (09/15/2024 11:55 AM EST) WBC 9.3 4.8 - 10.8 K/mcL LAB HEMETOLOGY METHOD 09/15/2024 12:23 PM [facility] RBC 5.00(H) 3.80 - 4.80 M/mcL LAB HEMETOLOGY METHOD 09/15/2024 12:23 PM [facility] Hemoglobin 15.3 11.5 - 16.0 g/dL LAB HEMETOLOGY METHOD 09/15/2024 12:23 PM [facility] Hematocrit 46.2 35.0 - 47.0 % LAB HEMETOLOGY METHOD 09/15/2024 12:23 PM [facility] MCV 93.1 79.0 - 98.0 FL LAB HEMETOLOGY METHOD 09/15/2024 12:23 PM [facility] MCH 30.8 27.0 - 32.0 pcg LAB HEMETOLOGY METHOD 09/15/2024 12:23 PM [facility] MCHC 33.1 32.0 - 37.0 g/dL LAB HEMETOLOGY METHOD 09/15/2024 12:23 PM [facility] RDW 12.5 11.0 - 15.0 % LAB HEMETOLOGY METHOD 09/15/2024 12:23 PM [facility] Platelets 278 130 - 400 K/mcL LAB HEMETOLOGY METHOD 09/15/2024 12:23 PM [facility] MPV 8.9 7.0 - 11.0 FL LAB HEMETOLOGY METHOD 09/15/2024 12:23 PM [facility] NRBC 0.0 <1.0 % LAB HEMETOLOGY METHOD 09/15/2024 12:23 PM [facility] NRBC Absolute 0.00 <0.10 K/mcL LAB HEMETOLOGY METHOD 09/15/2024 12:23 PM [facility] Neutrophils Relative 69.4 % LAB HEMETOLOGY METHOD 09/15/2024 12:23 PM [facility] Lymphocytes Relative 19.8 % LAB HEMETOLOGY METHOD 09/15/2024 12:23 PM [facility] Monocytes Relative 9.9 % LAB HEMETOLOGY METHOD 09/15/2024 12:23 PM [facility] Eosinophils Relative 0.1 % LAB HEMETOLOGY METHOD 09/15/2024 12:23 PM [facility] Basophils Relative 0.3 % LAB HEMETOLOGY METHOD 09/15/2024 12:23 PM [facility] Immature Granulocytes Relative 0.5 % LAB HEMETOLOGY METHOD 09/15/2024 12:23 PM [facility] Neutrophils Absolute 6.48 1.50 - 7.00 K/mcL LAB HEMETOLOGY METHOD 09/15/2024 12:23 PM [facility] Lymphocytes Absolute 1.85 1.00 - 5.00 K/mcL LAB HEMETOLOGY METHOD 09/15/2024 12:23 PM [facility] Monocytes Absolute 0.92 0.20 - 1.00 K/mcL LAB HEMETOLOGY METHOD 09/15/2024 12:23 PM [facility] Eosinophils Absolute 0.01 0.00 - 0.50 K/mcL LAB HEMETOLOGY METHOD 09/15/2024 12:23 PM [facility] Basophils Absolute 0.03 0.00 - 0.20 K/mcL LAB HEMETOLOGY METHOD 09/15/2024 12:23 PM [facility] Immature Granulocytes Absolute 0.05(H) 0.00 - 0.03 K/mcL LAB HEMETOLOGY METHOD 09/15/2024 12:23 PM EST [facility] Blood Venous blood specimen / Unknown Venipuncture / Unknown 09/15/2024 11:55 AM EST 09/15/2024 12:14 PM EST Stephen Kulkarni MD LAB BLOOD ORDERABLES Final Resu lt [facility] [address] [place] [address], [place] [phone] * Valproic acid level, total (09/15/2024 11:55 AM EST) [facility] Valproic Acid, Total 84 50 - 100 mcg/mL LAB CHEMISTRY METHOD 09/15/2024 12:39 PM EST [facility] Blood Venous blood specimen / Unknown Venipuncture / Unknown 09/15/2024 11:55 AM EST 09/15/2024 12:14 PM EST Stephen Kulkarni MD LAB BLOOD ORDERABLES Final Resu lt [facility] [address] [place] [address], [place] [phone] * Troponin I high sensitivity (09/15/2024 11:55 AM EST) [facility] High Sensitivity Troponin I 25 <=54 ng/L LAB CHEMISTRY METHOD 09/15/2024 12:47 PM EST [facility] Blood Venous blood specimen / Unknown Venipuncture / Unknown 09/15/2024 11:55 AM EST 09/15/2024 12:14 PM EST Narrative [facility] - 09/15/2024 12:47 PM EST High levels of biotin in samples may falsely decrease hsTroponin values. ??Use caution when interpreting hsTroponin results in patients taking biotin who exhibit renal impairment (eGFR <60) or in patients taking more than 20 mg/day of biotin. us Stephen Kulkarni MD LAB BLOOD ORDERABLES Final Resu lt Performing Organization Address [facility]/ZIP Co de Phone Number [facility] [address] [place] [address], [place] [phone] * (ABNORMAL) Magnesium (09/15/2024 11:55 AM EST) Magnesium 1.6(L) 1.9 - 2.6 mg/dL LAB CHEMISTRY METHOD 09/15/2024 12:39 PM [facility] Blood Venous blood specimen / Unknown Venipuncture / Unknown 09/15/2024 11:55 AM EST 09/15/2024 12:14 PM EST Stephen Kulkarni MD LAB BLOOD ORDERABLES Final Resu lt Performing Organization Address [facility]/ZIP Co de Phone Number [facility] [address] [place] [address], [place] [phone] * (ABNORMAL) Basic metabolic panel (09/15/2024 11:55 AM EST) Sodium 132(L) 133 - 145 mmol/L LAB CHEMISTRY METHOD 09/15/2024 12:39 PM [facility] Potassium 4.4 3.5 - 5.5 mmol/L LAB CHEMISTRY METHOD 09/15/2024 12:39 PM [facility] Chloride 97 96 - 110 mmol/L LAB CHEMISTRY METHOD 09/15/2024 12:39 PM [facility] CO2 31 21 - 32 mmol/L LAB CHEMISTRY METHOD 09/15/2024 12:39 PM [facility] Anion Gap 4 3 - 11 LAB CHEMISTRY METHOD 09/15/2024 12:39 PM [facility] Glucose 132(H) 70 - 100 mg/dL LAB CHEMISTRY METHOD 09/15/2024 12:39 PM EST [facility] BUN 10 5 - 25 mg/dL LAB CHEMISTRY METHOD 09/15/2024 12:39 PM [facility] Creatinine 0.81 0.50 - 1.10 mg/dL LAB CHEMISTRY METHOD 09/15/2024 12:39 PM EST [facility] eGFR 78 >=60 mL/min/1. 73m2 LAB CHEMISTRY METHOD 09/15/2024 12:39 PM EST [facility] Comment:Calculation based on the??Chronic Kidney Disease Epidemiology Collaboration (CKD-EPI) equation refit??without adjustment for race. BUN/Creatinine Ratio 12.3 LAB CHEMISTRY METHOD 09/15/2024 12:39 PM [facility] Calcium 9.9 8.5 - 10.5 mg/dL LAB CHEMISTRY METHOD 09/15/2024 12:39 PM [facility] Blood Venous blood specimen / Unknown Venipuncture / Unknown 09/15/2024 11:55 AM EST 09/15/2024 12:14 PM EST Stephen Carolina Kulkarni MD LAB BLOOD ORDERABLES Final Resu lt [facility] [address] [place] [address], * ECG 12 lead (09/15/2024 11:51 AM EST) Ventricular Rate ECG 74 BPM GEMUSE Atrial Rate 74 BPM GEMUSE P-R Interval 126 ms GEMUSE QRS Duration 84 ms GEMUSE Q-T Interval 380 ms GEMUSE QTc 421 ms GEMUSE P Wave [place] 6 degrees GEMUSE R [place] 21 degrees GEMUSE T [place] 36 degrees GEMUSE ECG Interpretation Normal sinus rhythm Low voltage QRS Normal ECG When compared with ECG of 17-JAN-2022 07:59, No significant change was found Confirmed by Adri RODRIGUEZ YUFENG ([id number]) on 09/15/2024 3:44:03 PM GEMUSE 09/15/2024 11:5 1 AM EST 09/15/2024 3:44 PM EST Stephen Kulkarni MD ECG ORDERABLES Final Result ADOLFO * ECG-Annotated (09/15/2024) Provider Onbase ECG ORDERABLES Final Result documented in this encounter Visit Diagnoses Diagnosis Dizziness- Primary Dizziness and giddiness Encounter for screening mammogram for breast cancer documented in this encounter Administered Medications Inactive Administered Medications - up to 3 most recent administrations Medication Order MAR Action Action Date Dose Rate Site amLODIPine (NORVASC) tablet 10 mg 10 mg, oral, Once, On 09/15/24 at 2150, For 1 dose Given 09/15/2024 9:56 PM EST 10 mg iopamidoL (ISOVUE-370) 370 mg iodine /mL (76 %) injection 90 mL 90 mL, intravenous, Once in imaging, Starting on 09/15/24 at 1446, For 1 dose Given 09/15/2024 2:56 PM EST 90 mL magnesium sulfate 2 gram/50 mL (4 %) IVPB 2 g 2 g, intravenous, at 25 mL/hr, Administer over 2 Hours, Once, On 09/15/24 at 1551, For 1 dose New Bag 09/15/2024 4:15 PM EST 2 g 25 mL/hr meclizine (ANTIVERT) tablet 25 mg 25 mg, oral, Once, On 09/15/24 at 1408, For 1 dose Given 09/15/2024 2:14 PM EST 25 mg sodium chloride 0.9 % bolus 1,000 mL 1,000 mL, intravenous, at 2,000 mL/hr, Administer over 30 Minutes, Once, On 09/15/24 at 1759, For 1 dose New Bag 09/15/2024 6:10 PM EST 1,000 mL 2000 mL/hr sodium chloride 0.9 % flush 10 mL 10 mL, intravenous, Once, On 09/15/24 at 1447, For 1 dose Given 09/15/2024 2:56 PM EST 10 mL documented in this encounter Active and Recently Administered Medications Times are shown in EST. Scheduled Medication Order 09/13/2024 09/14/2024 09/15/2024 amLODIPine (NORVASC) tablet 10 mg (COMPLETED) 10 mg, oral, Once, On 09/15/24 at 2150, For 1 dose 2156 (Given - Provid er: Lidia Torres RN) iopamidoL (ISOVUE-370) 370 mg iodine /mL (76 %) injection 90 mL (COMPLETED) 90 mL, intravenous, Once in imaging, Starting on 09/15/24 at 1446, For 1 dose 1456 (Given - Provid er: Irina Renteria) magnesium sulfate 2 gram/50 mL (4 %) IVPB 2 g (COMPLETED) 2 g, intravenous, at 25 mL/hr, Administer over 2 Hours, Once, On 09/15/24 at 1551, For 1 dose 1615 (New Bag - Prov ider: Breanne Osborn RN)1815 (Stopped - Provider: Breanne Osborn RN) meclizine (ANTIVERT) tablet 25 mg (COMPLETED) 25 mg, oral, Once, On 09/15/24 at 1408, For 1 dose 1414 (Given - Provid er: Breanne Osborn RN) sodium chloride 0.9 % bolus 1,000 mL (COMPLETED) 1,000 mL, intravenous, at 2,000 mL/hr, Administer over 30 Minutes, Once, On 09/15/24 at 1759, For 1 dose 1810 (New Bag - Prov ider: Breanne Osborn RN)1930 (Stopped - Provider: Lidia Torres RN) sodium chloride 0.9 % flush 10 mL (COMPLETED) 10 mL, intravenous, Once, On 09/15/24 at 1447, For 1 dose 1456 (Given - Provid er: Irina Renteria) documented in this encounter Orders Lab Orders Without Results Count Last Ordered D ate First Ordered Date POCT GLUCOSE, BLOOD 1 09/15/2024 Nursing Count Last Ordered Date First Orde red Date VITAL SIGNS 2 09/15/2024 documented in this encounter Care Teams Bag Turner Relationship Specialty Start Date End Date Trever Meeks MD [address] PCP - General Internal Medicine 01/06/22 documented as of this encounter
[2024-10-14 16:49] LABS: C Reactive Protein 0.22 mg/dL (< or = 0.50)
[2024-10-14 19:57] LABS: Erythrocyte Sedimentation Rate 3 MM/HR (0-20)
== END 2024-10-14 15:22 | disposition home or self-care (01) ==
LOC: HO.LAB 15:21
PROVIDERS: PCP Internal Medicine; Visit Provider Registered Nurse
DX: G43.909 Migraine, unspecified, not intractable, without status migrainosus (principal)
CPT/HCPCS: 36415; 85652; 86140

== ENCOUNTER 2025-09-02 11:45 | Outpatient (REF) | payer MEDICARE, OTHER, SELFPAY | END 2025-09-02 11:46 | disposition home or self-care (01) | LOC: HO.LAB 11:45 | PROVIDERS: PCP Internal Medicine; Visit Provider Registered Nurse | DX: G40.909 Epilepsy, unspecified, not intractable, without status epilepticus (principal); G47.00 Insomnia, unspecified; M79.7 Fibromyalgia; G43.909 Migraine, unspecified, not intractable, without status migrainosus; R25.1 Tremor, unspecified; G44.40 Drug-induced headache, not elsewhere classified, not intractable; Z79.899 Other long term (current) drug therapy; Z86.73 Personal history of transient ischemic attack (TIA), and cerebral infarction without residual deficits | CPT/HCPCS: 36415; 80164 ==

== ENCOUNTER 2025-09-02 11:45 | Outpatient (AMB) | payer MEDICARE, SELFPAY ==
--- OUTSIDE RECORDS SUMMARY | 2024-07-24 08:30 | XMS_ITS ---
Author Organization [facility] Address [address] [place] [address] Care Team Providers Care Director Business Development Name Role Phone ITZEL LEWIS Primary Care Provider REASON FOR VISIT 40 AWV (Nursing First) Encounters Encounter Location Date Provider Diagnosis [facility] [address] [place] [phone] 07/24/2024 ITZEL LEWIS Plan Of Treatment Next Appt Details Provider Name:ALEX Lyn JOHN L, 09/09/2025 01:00:00 PM, [address] [place], [phone], Progress Notes * GRADY PIZARROOB:1955 (70 yo F)Acc No.[id number]:07/24/2024 Progress Note Patient: KAYLEEN LANGSTON Provider: Albaro LEWIS MD :1955 A ge:69 Y S ex:Female Date:07/24/2024 Address:[address] [facility] Subjective: * Chief Complaints: * 4 0 AWV (Nursing First) * Electronic signature of ITZEL LEWIS MD on 09/02/2025 at 03:50 PM EST Sign off status: Pending * Provider: Albaro LEWIS MD Date: 09/23/2023 Generated for Printi ng/Faxing/eTransmitting on: 03:50 PM EST
--- OUTSIDE RECORDS SUMMARY | 2024-08-22 10:30 | XMS_ITS ---
Author Organization [facility] Address [address] [place] [address] Care Team Providers Care Uncrater Name Role Phone ITZEL LEWIS Primary Care Provider [phone] [place], JULIUS Unavailable [phone] REASON FOR VISIT AWV w/Beth Encounters Encounter Location Date Provider Diagnosis [address] [phone] 08/22/2024 [facility] [place] Plan Of Treatment Next Appt Details Provider Name:ALEX Fontenot, 09/09/2025 01:00:00 PM, [address] [place] [address], [phone], Progress Notes * GRADY PIZARROOB:1955 (70 yo F)Acc No.[id number]:08/22/2024 Progress Note Patient: KAYLEEN LANGSTON Provider: Julius Connelly :1955 A ge:69 Y S ex:Female Date:08/22/2024 Address:[address] [facility] Pcp:ITZEL LEWIS Subjective: * Chief Complaints: * A [place] w/Beth * Electronic signature of [facility] on 09/02/2025 at 03:50 PM EST Sign off status: Pending * Provider: Julius Connelly Date: 10/23/2023 Generated for Printi ng/Faselwyng/eTransmitting on: 03:50 PM EST
--- OUTSIDE RECORDS SUMMARY | 2025-08-26 05:30 | XMS_ITS ---
Author Organization [facility] Address [address] [place] [address] Care Team Providers Care Truss Assembler Name Role Phone ITZEL LEWIS Primary Care Provider [phone] MANLY, NURSING Unavailable [phone] REASON FOR VISIT N/AWV Encounters Encounter Location Date Provider Diagnosis [address] [phone] 08/26/2025 NURSING MANLY Plan Of Treatment Next Appt Details Provider Name:ALEX Fontenot, 09/09/2025 01:00:00 PM, [address] [place] [address], [phone], Progress Notes * GRADY PIZARROOB:1955 (70 yo F)Acc No.[id number]:08/26/2025 Progress Note Patient: KAYLEEN LANGSTON Provider: Oswaldo Connelly :1955 A ge:70 Y S ex:Female Date:08/26/2025 Address:[address] [id number] Pcp:ITZEL LEWIS Subjective: * Chief Complaints: * N /AWV * Electronic signature of [facility] on 09/02/2025 at 03:49 PM EST Sign off status: Pending * Provider: Tre morgan Nursing Date: 10/27/2024 Generated for Printi ng/Faxing/eTransmitting on: 03:49 PM EST
--- OUTSIDE RECORDS SUMMARY | 2025-08-26 06:00 | XMS_ITS ---
Author Organization [facility] Address [address] [place] [address] Care Team Providers Care Development Consultant Name Role Phone ITZEL LEWIS Primary Care Provider REASON FOR VISIT 40/AWV Encounters Encounter Location Date Provider Diagnosis [facility] [address] [place] [phone] 08/26/2025 ITZEL LEWIS Plan Of Treatment Next Appt Details Provider Name:ALEX Fontenot, 09/09/2025 01:00:00 PM, [address] [place], [address], Progress Notes * GRADY PIZARROOB:1955 (70 yo F)Acc No.[id number]:08/26/2025 Progress Note Patient: KAYLEEN LANGSTON Provider: Albaro LEWIS MD :1955 A ge:70 Y S ex:Female Date:08/26/2025 Address:[address] [facility] Subjective: * Chief Complaints: * 4 0/AWV * Electronic signature of ITZEL LEWIS MD on 09/02/2025 at 03:50 PM EST Sign off status: Pending * Provider: Albaro LEWIS MD Date: 10/27/2024 Generated for Printi ng/Faxing/eTransmitting on: 03:50 PM EST
--- NOTE | 2025-09-02 11:47 | A.OFFVIS_ITS ---
Vital Signs 09/02/25 12:14 BP 141/70 H Position Sitting Pulse 69 Intake Visit Reasons: stroke Allergies meperidine (From Demerol) Allergy (Unknown, Verified 09/02/25 11:51) Unknown Medication List - Last Reconciled 09/02/25 by Nicol Marrero CNP amlodipine 5 mg PO DAILY atorvastatin 20 mg PO DAILY divalproex ER 500 mg PO BID exemestane 25 mg PO Q OTHER DAY fluoxetine 20 mg PO DAILY gabapentin mg PO ketorolac 0.5% 1 drp ophthalmic-Right pantoprazole 40 mg PO BID trazodone 50 mg PO BEDTIME PRN 90 days vibegron (Gemtesa) 75 mg PO DAILY HPI Comments Details: She had R cataract surgery last week and was getting L eye done next month. No significant dizziness. Balance was off at times, but no falls. No new or increased weakness. She was still having some mild headaches. She was taking Tylenol 500mg twice a day, which she has taken for many months. No photophobia or sonophobia. Appetite was not so good and she was more nauseous over the last 2 months. She saw GI in the past, but not recently. No definite seizures. About 1 week ago, she had episode at home where she smelled burnt toast for about 10 seconds, and it happened again a few days later. She denies any missed doses of Depakote, however she says she did not take medication this morning due to nausea. She may have had headache at the time of this episode. Tremors were about the same. No functional impairment. No difficulty eating, drinking, or sw allowing. Fibromyalgia pain was stable with gabapentin, some arthritis pains in hands. Sleep was okay with trazodone. Mood was okay. She had brain MRI done at [facility] in 09/2024. Blood pressure and dizziness better. Some headaches that were better with Tylenol, but returned after few hours. No photophobia, sonophobia, nausea, or vomiting. [place] off on 09/15/2024, BP was 170/90. Went to [facility] ER, BP was up to 198/92, given amlodipine 10mg, and SBP down to 181. Found to have borderline low magnesium, CT negative. She was discharged home on amlodipine 10mg. Had been having increased dizziness since 08/2024, lightheaded, off-balance feeling, lists to left side. May happen more often when changing positions. Some residual RUE weakness along with some numbness to R hand and R side of mouth following stroke. No choking or difficulty swallowing. No new or increased weakness. BP was running low after R TKR in 09/2023 and amlodipine had been stopped. Nerve ablation in 12/2022 helped with managing LBP. Precancerous lesions on scalp and nose removed. Hx breast cancer with ductal CA, had lumpectomy end of 01/2022, negative nodes. Had RT. Stroke on 09/11/2021 when she woke with right side tingling and numb, dizzy, and fell. Still has numbness in R hand and R mouth. Had MRI and CTA which confirmed L thalamic stroke, no significant vascular disease. No previous stroke hx or TIA. Lot of stress and anxiety which increased following stroke. Has trouble sleeping at night without trazodone. 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 Body aches. Hand tremors slightly worse at times, especially when rushed at work. Tremors do not interfere with functioning. Seizure disorder well-controlled. Fibromyalgia controlled. [facility] Medical History (Updated 09/02/25 @ 12:43 by Nicol Marrero CNP) History of breast cancer Depression Thalamic stroke Surgical History (Updated 09/02/25 @ 11:54 by Nicol Marrero CNP) Status post total knee replacement, right S/P lumpectomy, left breast Review of Systems Const Denies chills, Denies daytime sleepiness, Denies difficulty sleeping, Denies fatigue, Denies fever(s), Denies frequent falls, Denies headache(s), Denies increased appetite, Denies poor appetite, Denies snoring, Denies weakness, Denies weight gain and Denies weight loss Eyes Denies loss of vision ENT Denies vertigo, Reports dizziness, Denies headache(s) and Denies neck pain Card Denies chest pain at rest, Denies chest pain with activity, Denies syncope, Denies leg edema, Denies palpitations, Denies dyspnea and Denies dyspnea on exertion Resp Denies cough, Denies dyspnea, Denies dyspnea on exertion and Denies snoring GI Denies abdominal pain, Denies constipation, Denies heartburn, Denies diarrhea and Denies nausea Denies urinary frequency, Denies urinary incontinence and Denies urinary urgency Musc Denies abnormal gait, Denies back pain, Denies myalgias, Denies arthralgias, Denies neck pain, Denies numbness and Denies tingling Neuro Denies abnormal gait, Denies vertigo, Reports dizziness, Denies syncope, Denies frequent falls, Denies headache(s), Denies lack of coordination, Denies loss of vision, Denies memory loss, Denies numbness, Denies Other visual disturbances, Denies restless legs, Denies seizure-like activity, Denies tingling, Denies paresthesias, Reports tremor(s), Denies weakness and Reports other (balance difficulty) Psych Denies anxiety, Denies depression, Denies auditory hallucinations, Denies memory loss and Denies visual hallucinations Endo Denies fatigue and Denies palpitations Physical Exam Const Other: General Appearance:? normal, in no acute distress. Heart:? S1, S2 normal, no murmurs. Lungs:? clear anteriorly and posteriorly. Musculoskeletal:? normal. Extremities:? no edema. Psych:? alert, oriented, cognitive function intact, cooperative with exam. Neuro Other: Abnormal Neurological Findings:?Mild low amplitude, high frequency tremors of BUE on sustained posture. Slight head tremor. Mental Status: alert and oriented X 3. Normal attention, orientation, memory, and affect. Cranial Nerves: Pupils are equal, round, and reactive to light. External ocular muscles are intact. Visual baeaz are full, no ptosis. Face is symmetrical, no facial weakness or droop. Facial sensations are normal. Tongue protrudes in midline. Palate elevates symmetrically. Shoulder shrugging is normal Motor Examination: Normal muscle tone, bulk and strength. No atrophy or fasciculations. No drift of the extended upper extremities. DTR 2+. Plantars are flexor. Sensory Exam: Normal light touch, temperature, pinprick, vibration, and joint- position sensations. Rhomberg sign is absent. Coordination: No ataxia. No titubation. Gait Exam: Within normal limits. Cerebellar Signs: [id number] is okay. Extrapyramidal System: Tremor as above. No rigidity with normal facial expressions. No bradykinesia. No bradyphrenia. Normal arm swing and posture. No propulsion or retropulsion. Speech: Normal. Results Reviewed Results Reviewed: Laboratory Tests 10/14/24 15:54 ESR 3 C-Reactive Protein 0.22 CT brain 10.12 normal. MRI brain 09/11/21 shows acute left thalamic infarct CTA 09/11/21 shows no occlusive disease in the neck, hypoplastic left Ant comm, and short segment moderate narrowing of left P1 segment of [employer] MRI brain 09/2024 at [facility]: No acute intracranial findings. Small area of encephalomaacia in the left thalamus compatible with previous small vessel infarct. This appears similar to the comparison CT on 09/15/2024. Mild chronic microvascular ischemic changes of the supratentorial white matter (reported). Assessment & Plan Assessment & Plan (1) Seizure disorder: Comment: since ?1994 Code(s): G40.909 - Epilepsy, unspecified, not intractable, without status epilepticus Category: Medical Plan: Continue Depakote ER 500mg 1 tablet twice a day. She denied missing any doses of medication, but admitted to not taking medication this morning due to nausea. She was educated on the importance of taking medication as prescribed, and risk associated with missed doses including seizures. Valproate level ordered. If episodes continue, can consider EEG in the future. Follow up in 3 months or sooner as needed. (2) Insomnia: Code(s): G47.00 - Insomnia, unspecified Category: Medical Qualifiers: Insomnia type: unspecified Qualified Code(s): G47.00 - Insomnia, unspecified Plan: Continue trazodone 50mg 1 tablet at bedtime as needed for sleep #90 for 90 days. (3) Fibromyalgia: Code(s): M79.7 - Fibromyalgia Category: Medical Plan: She was taking gabapentin. (4) Migraine: Code(s): G43.909 - Migraine, unspecified, not intractable, without status migrainosus Category: Medical Qualifiers: Migraine type: unspecified Status migrainosus presence: without status migrainosus Intractability: not intractable Qualified Code(s): G43.909 - Migraine, unspecified, not intractable, without status migrainosus Plan: Lab results reviewed - ESR and CRP okay. Discussed option of starting preventive medication (such as propranolol which could also help tremors), declining at this time. Start ondansetron 4mg 1 tablet as needed for nausea #20 for 30 days - she had seen GI in the past, and was advised to follow up with GI for symptoms of decreased appetite and increased nausea. (5) Tremor: Code(s): R25.1 - Tremor, unspecified Category: Medical Plan: She was not significantly bothered by tremor and she was not interested in trying medication at this time. (6) History of stroke: Code(s): Z86.73 - Personal history of transient ischemic attack (TIA), and cerebral infarction without residual deficits Category: Medical Plan: Continue statin, control blood pressure. (7) Medication overuse headache: Code(s): G44.40 - Drug-induced headache, not elsewhere classified, not intractable Category: Medical Plan: She has been taking Tylenol 500mg 2x/day for many months. She was educated on this concept. She was advised to stop taking Tylenol completely (and avoid using other OTC analgesics). Orders: Orders Valproate Today G40.909 - Epilepsy, unspecified, not intractable, without status epilepticus Medications: New ondansetron 4 mg PO DAILY PRN 20 tabs 2RF nausea and vomiting 30 days Coding Level of Care Code Est Pt Level 4 (46707) Diagnoses Seizure disorder G40.909 Insomnia, unspecified type G47.00 Insomnia type: unspecified Fibromyalgia M79.7 Migraine without status migrainosus, not intractable, unspecified migraine type G43.909 Migraine type: unspecified Status migrainosus presence: without status migrainosus Intractability: not intractable Tremor R25.1 History of stroke Z86.73 Medication overuse headache G44.40
[2025-09-02 12:14] VITALS: BP 141/70; PULSE 69
--- OUTSIDE RECORDS SUMMARY | 2025-09-02 15:49 | XMS_ITS | Patient Health Record ---
Author Organization [facility] Address [address] [facility] [place] [address] Care Team Providers Care Welder Apprentice Arc Name Role Phone ITZEL LEWIS Primary Care Provider [phone] JULIUS SOTO Unavailable [phone] KYLER ALEGRIA Unavailable [phone] ALBARO AGUIRRE Unavailable [phone] Allergies Allergen (clinical drug ingredient) Drug/Non Drug Allergy documented on EMR Reaction Allergy Type Onset Date Status Narcotics (uncoded) Unknown Allergy Active meperidine Demerol extreme nausea/vomiting Drug Allergy Active Reason For Referral No Information Medications Medication SIG (Take, Route, Frequency, Duration) Notes Start Date End Date Status traZODone HCl 50 MG Tablet 1 tab(s) oral ly at bedtime Active Tylenol 325 MG Tablet 2 tab(s) orally prn Active Gabapentin 600 MG Tablet 1 capsule Orall y Once a day Active Gemtesa 75 MG Tablet TAKE 1 TABLET BY [facility] EVERY DAY FOR 30 DAYS Active amLODIPine Besylate 5 MG Tablet TAKE 1 TABLET BY MOUTH EVERY DAY FOR 30 DAYS Active Exemestane 25 MG Tablet 1 tablet with a meal Orally every other day Active Aspirin 81 81 MG Tablet Delayed Release 1 tablet Orally Once a day Active Solifenacin Succinate 5 MG Tablet 1 tablet Orally twice daily Active Atorvastatin Calcium 20 MG Tablet TAKE 1 TABLET BY MOUTH EVERY DAY Active FLUoxetine HCl 60 MG Tablet TAKE 1 CAPSU LE BY MOUTH THREE TIMES A DAY Active Divalproex Sodium ER 500 MG Tablet Extended Release 24 Hour TAKE 1 TABLET BY MOUTH TWICE A DAY Active Chlorthalidone 25 MG Tablet TAKE 1 TABLE T IN THE MORNING WITH FOOD ORALLY 90 DAYS Active Immunizations Vaccine Route Administration Date Status Comme nts Influenza, Fluzone HD 65+ IM Intramuscular 05/30/2023 Admi nistered Pfizer COVID-19,mRNA, LNP-S, PF, 30mcg/0.3mL dose IM Intramuscular 08/10/2021 Administered [id number] IM Intramuscular 05/30/2023 Administered Tdap (Adacel) Unknown 02/09/2020 Administered Social History Tobacco Use: Social History Observation Description Date Details (start date - stop date) Former Smoker NA - NA Social History Drug/Alcohol: Social Info Question Answer Notes Alcohol Screen Did you have a drink containing alcohol in the past year? Yes How often did you have a drink containing alcohol in the past year? Four or more times a week (4 points) How many drinks did you have on a tpical day when you were drinking in the past year? 1 or 2 (0 points) How often did you have six or more drinks on one occassion in the past year? 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 Past year's travels: none alcohol use: yes socially drug use: no Coffee/Tea/Soda: yes Coffee, 2, cups per day Marital Status experience no Living with Pets dog, cats smokers in household no Section Notes: quit smoking 12/2019 quit smoking 12/2019 quit smoking 12/2019 quit smoking 12/2019 quit smoking 12/2019 quit smoking 12/2019 quit smoking 12/2019 quit smoking 12/2019 quit smoking 12/2019 quit smoking 12/2019 quit smoking 12/2019 quit smoking 12/2019 quit smoking 12/2019 quit smoking 12/2019 quit smoking 12/2019 quit smoking 12/2019 quit smoking 12/2019 quit smoking 12/2019 quit smoking 12/2019 quit smoking 12/2019 Problems Problem Type SNOMED Code ICD Code Onset Dates Problem Status W/U Status Risk Notes Problem Family History of Cancer of Colon (Situation) (716678499) Family history of colon cancer (Z80.0) Active confirmed Problem Fibromyalgia (563684538) Fibromyalgia (M79.7) Active confirmed Problem Essential hypertension (43992543) Essential (primary) hypertension (I10) Active confirmed Problem Overactive bladder (543424367) Overactive bladder (N32.81) Active confirmed Problem Malignant neoplasm of upper-outer quadrant of female breast (498655911) Malignant neoplasm of upper-outer quadrant of left female breast (C50.412) Active confirmed Problem Mixed hyperlipidemia (656891273) Mixed hyperlipidemia (E78.2) Active confirmed Problem Chronic pain (48853265) Other chronic pain (G89.29) Active confirmed Problem Urge incontinence of urine (58122851) Urge incontinence (N39.41) Active confirmed Problem Anxiety (82096846) Anxiety (F41.9) Active confi rmed Problem Osteoarthritis of knee (454696163) Primary osteoarthritis of right knee (M17.11) Active confirmed Problem Cerebrovascular accident (600038572) Cerebrovascular accident (CVA), unspecified mechanism (I63.9) Active confirmed Problem Thalamic stroke (46825392016352407 4) Thalamic stroke (I63.9) Active confirmed Problem Osteoarthritis of knee (620105208) Osteoarthritis of knee, unspecified laterality, unspecified osteoarthritis type (M17.9) Active confirmed Vital Signs Blood pressure diastolic 78 mm Hg 08/11/2025 Height 62.25 in 08/11/2025 Blood pressure systolic 130 mm Hg 08/11/2025 Weight 145 lbs 08/11/2025 BMI 26.31 kg/m2 08/11/2025 Encounters Encounter Location Date Provider Diagnosis [place] [id number] 09/20/2024 ITZEL LEWIS Essential (primary) hypertension I10 [place] [phone] 02/21/2025 ITZEL LEWIS Lower extremity dara a R60.0 ; Urge incontinence N39.41 ; Essential (primary) hypertension I10 ; Malignant neoplasm of upper-outer quadrant of left female breast C50.412 ; Mixed hyperlipidemia E78.2 and Impaired fasting glucose R73.01 [place] [phone] 01/06/2025 ITZEL LEWIS Lower extremity dara a R60.0 ; Urge incontinence N39.41 and Essential (primary) hypertension I10 [address] [address] 05/01/2025 ITZEL LEWIS Anxiety F41.9 and Malignant neoplasm of upper-outer quadrant of left female breast C50.[address] [address] 08/11/2025 ALBARO DIAMONDNENITACortez Pre-op evaluation Z01.818 ; Anxiety F41.9 ; Malignant neoplasm of upper-outer quadrant of left female breast C50.412 ; Urge incontinence N39.41 ; Essential (primary) hypertension I10 ; Mixed hyperlipidemia E78.2 and Impaired fasting glucose R73.[address] [address] 08/22/[address] [address] 08/11/2025 ITZEL LEWIS [address] [address] 07/09/2025 ITZEL DEBBIE [facility] [address] [place] [id number] 04/29/2025 ITZEL LEWIS [address] [address] 02/23/[address] [address] 01/23/[address] [address] 01/09/[address] [address] 12/31/2024 ITZEL LEWIS [address] [address] 12/30/2024 ITZEL LEWIS [address] [address] 12/27/20[facility] [address] 09/15/2024 KYLER Webster Encounter Date Diagnosis (ICD Code) Assessment Notes Treatment Notes Treatment Clinical Notes Section Notes 01/06/2025 Urge incontinence (ICD-10 - N39.41) She initially found good benefit from Vesicare but is now having more difficulty with urinary urge incontinence. She wakes up every hour during the night to urinate and still has incontinence at times. She did not find any improvement after increasing solifenacin to 10 mg daily. I provided her with a 2-week sample of Gemtesa in the hopes that her urinary continence and frequency will improve. If not, we will refer her to a urologist that she has not seen in years. 01/06/2025 Lower extremity edema (ICD-10 - R60.0) She was seen in [facility] emergency room on December 27 for bilateral leg edema. A venous ultrasound showed no DVT and she was sent home. On further history, she describes having had intermittent bilateral leg edema for several months, mostly since her amlodipine was increased to 10 mg on an emergency room visit. Blood pressure has been better, mostly 120s systolic at home though it is higher than that today. She is clearly quite anxious and in pain explaining that. It is likely that her edema, as it presents itself today as mild bilateral pitting edema, is at least in part related to the high dose of amlodipine. I advised her to cut back to 5 mg of amlodipine daily. And chlorthalidone added. See below. She will call if this is not better in 1 to 2 weeks. The edema is only minimal and I advised further salt restriction and compression hose. 02/21/2025 Urge incontinence (ICD-10 - N39.41) She found good relief of her overactive bladder incontinence with Gemtesa. She is happy with that medication. Not so much with the koenig. I gave her several samples. 02/21/2025 Lower extremity edema (ICD-10 - R60.0) Edema is essentially resolved after decreasing amlodipine to 5 mg and adding HCTZ. Not an issue now 09/20/2024 Essential (primary) hypertension (ICD-10 - I10) SHe was seen at [facility] for high BP. SHe was very anxious at the time. She was advised to go to the emergency room after calling over the weekend with concerns about a very high blood pressure. She spent much of the day at [facility] emergency room. Prior to going home, she was found to have a blood pressure of 180/98. She was given amlodipine at that time and a prescription to go home with. Hospital records were requested, but she states that not much was done . She has been having much holiday stress. She is now back on amlodipine w/o side effects. Her headaches are better (which preceded the amlodipine) and her blood pressure has been mostly about 140/80. We discussed nonpharmacologic management of high blood pressure. She will continue to monitor and let me know if it increases. I feel that much of her hypertension is anxiety related. She does appear to be very stressed and angry (mostly at the emergency room). She knows I am available if there are any concerns. 05/01/2025 Malignant neoplasm of upper-outer quadrant of left female breast (ICD-10 - C50.412) She finds cannabis to be helpful for stress related to this. Also, her appetite has been suppressed and it helps. 05/01/2025 Anxiety (ICD-10 - F41.9) She has been smoking cannabis due to anxiety and arthritic pains. She smokes 2 cones/day, but cut back. She understands the risks of smoking. Discussed advantages (and disadvantages) of edibles. She has been drinking less . Down to 2oz vodka/night over hours. It had been up to 3 oz. No illicit drugs. 08/11/2025 Pre-op evaluation (ICD-10 - Z01.818) According to this exam patient is at average risk for this average risk surgery given age and comorbidities. No apparent contraindications to surgery. According to AHA/ACC guidelines no further cardiac testing is necessary for risk stratification. Patient will take all her usual am meds with a sip of water. This exam is valid for 30 days. 08/11/2025 Anxiety (ICD-10 - F41.9) 08/11/2025 Malignant neoplasm of upper-outer quadrant of left female breast (ICD-10 - C50.412) 01/06/2025 Essential (primary) hypertension (ICD-10 - I10) As above, amlodipine 10 mg daily was switched to 5 mg with the addition of chlorthalidone in the hopes of eliminating her leg edema. 02/21/2025 Essential (primary) hypertension (ICD-10 - I10) BP is well-controlled here and at home on amlodipine, chlorthalidone. Should check electrolytes. 02/21/2025 Malignant neoplasm of upper-outer quadrant of left female breast (ICD-10 - C50.412) She remains on chemotherapy. Followed by Dr Morelos q 6 months, and Dr Sherwood (surgical onc) 08/11/2025 Urge incontinence (ICD-10 - N39.41) 02/21/2025 Mixed hyperlipidemia (ICD-10 - E78.2) She is tolerating atorvastatin 20 mg well. LDL came down from 147 to 95. WIll recheck now. 02/21/2025 Impaired fasting glucose (ICD-10 - R73.01) Recheck A1c today. 08/11/2025 Essential (primary) hypertension (ICD-10 - I10) 08/11/2025 Mixed hyperlipidemia (ICD-10 - E78.2) 08/11/2025 Impaired fasting glucose (ICD-10 - R73.01) 09/20/2024 Other 34' F2F encounter 01/06/2025 Other She is under a great deal of pain which we discussed at length. She will be seeing her pain physician next week. She feels that the spinal ablation did not help, and made her significantly worse. She states that she cannot take opiates due to severe nausea and vomiting. I suggested she speak with her pain doctor about a tens unit. We can also consider duloxetine. 35' encounter for counseling, ER notes review.. 08/11/2025 Other I am seeing the patient under the supervision of the co-signing physician. The physician was available for consultation at the time of the office visit. Plan Of Treatment Future Test Test Name Order Date LIPID PROFILE 09/22/2021 CBC W/ AUTOMATED DIFF 09/22/2021 COMP. METABOLIC 09/22/2021 LIPID PROFILE 11/11/2021 CBC W/ AUTOMATED DIFF 11/11/2021 COMP. METABOLIC 11/11/2021 GLYCOHEMOGLOBIN (HBA1C) 02/24/2022 COMP. METABOLIC 02/24/2022 LIPID PROFILE 05/25/2022 GLYCOHEMOGLOBIN (HBA1C) 05/25/2022 COMP. METABOLIC 05/25/2022 URINALYSIS W/REFLEX CULTURE 11/08/2023 Next Appt Details Provider Name:ALEX Fontenot, 09/09/2025 01:00:00 PM, [address] [place], [address], Insurance Providers Payer Name Payer Address Payer Phone Subscriber Number Group Number Insured Name Patient Relationship to Insured Coverage Start Date Coverage End Date [employer] [address] [place] [phone] [id number] KAYLEEN PIZARRO Self - patient is the insured [facility] [address] [place] [address] [id number] KAYLEEN PIZARRO Self - patient is the insured 4 Medical (General) History Medical History History ICD Code seizure disorder OCD Colonoscopy 04/12/04 - [facility]. Probable mild IBS Colonoscopy 05/18/2010 - [facility] Colonoscopy 06/27/2016 - Mod sig tics. allergy depression eye disease- glaucoma headaches breast cancer HCP: Surinder Pizarro [phone] Surgical History Surgery Date(Month/Year) Right Total Knee 10/04/23 [facility] Breast Lumpectomy 2021 R breast lumpectomy (benign) 2011 Hospitalization History Reason Date(Month/Year) [facility]: CVA - Left Thalamic Stroke 09/11/21 [facility] ED 12/2024 [facility] ED TIA Symptoms 09/15/24 [facility] 3 days 10/28
--- OUTSIDE RECORDS SUMMARY | 2025-09-02 15:49 | XMS_ITS | Clinical Summary ---
Author Organization [facility] Address [address] [place] [address] Phone Care Team Providers Care Regional Owner Operator Truck Driver Name Role Phone Trever Meeks MD Primary Care Provider [phone] Allergies Active Allergy Reactions Criticality Noted Date Comments Meperidine 01/28/2022 Opioids - Morphine Analogues 025 Medications aspirin 81 mg EC tablet Take 81 mg by mouth daily. Active atorvastatin (LIPITOR) 20 mg tablet Take 20 mg by mouth daily. Active cholecalciferol, vitamin D3, 75 mcg (3,000 unit) [...] AT BEDTIME FOR 30 DAYS 11/22/2021 Active amLODIPine (NORVASC) 10 mg tablet Take 1 tablet (10 mg total) by mouth 1 (one) time each day. 30 each 09/15/2024 Active pantoprazole (PROTONIX) 40 mg EC tabletIndication s:Gastroesophage al reflux disease without esophagitis TAKE 1 TABLET BY MOUTH TWICE A DAY 180 tablet 2 01/24/2025 Active exemestane (AROMASIN) 25 mg tablet TAKE 1 TABLET BY MOUTH EVERY OTHER DAY 45 tablet 3 02/03/2025 Active Active Problems Problem Noted Date Diagnosed Date Fibromyalgia 08/15/2024 Malignant neoplasm of upper- outer quadrant of left breast in female, estrogen receptor positive 05/17/2024 Intractable nausea 05/17/2024 Acute midline low back pain without sciatica Encounters Date Type Department Care Team Description 07/04/2025 1:00 PM EDT Office Visit [address] [address] Shira Woodson, [place] Malignant neoplasm of upper-outer quadrant of left breast in female, estrogen receptor positive ([facility] V24, CMS/[facility] V28) (Primary Dx) from Last 3 Months Immunizations Immunization Administration Dates Next Due Pfizer SARS-CoV-2 COVID-19, mRNA, LNP-S, preservative free 08/10/2021,10/30/2020,10/09/2020 Surgical History Surgery Date Site/Laterality Comments BREAST MASS EXCISION Right PROCEDURE:BREAST MASS EXCISION BREAST LUMPECTOMY Left HYSTERECTOMY COLONOSCOPY 09/04/2020 - 10/04/2020 Hyperplastic polyp x 1, sigmoid and descending diverticulosis (5yr/ Fhx) Dr. Sandra ESOPHAGOGASTRODUODENOSCOPY 10/05/2023 - 11/02/2023 Small hiatal hernia otherwise unremarkable including small bowel and gastric biopsy Medical History Medical History Date Comments History of stroke DX:History of stroke Hypertension DX:Hypertension Seizure disorder (CMS/HCC V24, CMS/[facility] V28) DX:Seizure disorder (HCC) Stroke (CMS/HCC V24, CMS/HCC V28) DX:Stroke (HCC) Breast cancer (CMS/[facility] V24, CMS/[facility] V28) Family History Medical History Relation Name Comments Breast cancer Mother Cancer Mother Cancer Sister Relation Name Status Comments Mother Sister Social History Tobacco Use Types Packs/Day Years Used Date Smoking Tobacco: Former Cigarettes 0 Q uit: 09/11/2021 Smokeless Tobacco: Never Tobacco Cessation:Counseling Given: Not Answered Alcohol Use Standard Drinks/Week Comments Yes 14 (1 standard drink = 0.6 oz pu re alcohol) Comments No Sex and Gender Information Value Date Recorded Sex Assigned at Not on file Legal Sex Female 12:05 AM EST Gender Identity Not on file Sexual Orientation Not on file Last Filed Vital Signs Vital Sign Reading Time Taken Comments Blood Pressure 123/67 07/04/2025 1:00 PM EDT Pulse 68 07/04/2025 1:00 PM EDT Temperature 36.6 C (97.8 F) 07/04/2025 1:00 PM EDT Respiratory Rate 20 09/15/2024 10:22 PM EST Oxygen Saturation 99% 05/27/2025 11:22 AM EDT Inhaled Oxygen Concentration - - Weight 67.1 kg (148 lb) 05/27/2025 11:22 AM EDT Height 160 cm (5' 3 ) 05/27/2025 11:22 AM EDT Body Mass Index 26.22 05/27/2025 11:22 AM EDT Plan of Treatment Upcoming Encounters Date Type Department Care Team (Late st Contact Info) Description 09/22/2025 9:00 AM EST Appointment [facility] Bone Density [address] [place] [address] 11/18/2025 10:30 AM EDT Office Visit [facility] Hematology Oncology [address] [place] [address] Nathaniel Prasad MD [address] [place] [address] 01/08/2026 1:20 PM EDT Office Visit Breast [address] [address] Ilsa Red MD [address] [place] [address] Health Maintenance Due Date Last Done Comments Zoster Vaccines (1 of 2) 1973 RSV Immunization Adult Patients (1 - Risk 50-74 years 1-dose series) 2004 Cholesterol Screening (Lipid Panel) 08/13/2022 Falls Risk Assessment 08/13/2022 Hepatitis C Screening 08/13/2022 Medicare Annual Wellness Visit 08/13/2022 Social Influencers of Health Screening 08/13/2022 Depression Screening 09/04/2024 COVID-19 Vaccine ( season) 2025 06/22/2022, 08/10/2021, 10/30/2020, Additional history exists Influenza Vaccine (#1) 2025 3, 06/22/2022, 09/14/2021, Additional history exists Hypertension/CHF/CAD Annual BMP Blood Test 09/15/2025 09/15/2024 Breast Cancer Screening 12/25/2026 12/26/19 25, 06/26/2023, 12/03/2021, Additional history exists DTaP,Tdap,and Td Vaccines (2 - Td or Tdap) 02/08/2030 02/09/2020 Colorectal Cancer Screening: Colonoscopy 09/07/2030 09/07/2020 Osteoporosis Screening (Bone Density Screening) 03/22/2032 03/22/2022 [...] age to complete this topic Meningococcal B Vaccine Aged Out No l onger eligible based on patient's age to complete this topic RSV Immunization Patients Under 20 months Aged Out No longer eligible based on patient's age to complete this topic Varicella Vaccines Aged Out No longer eligible based on patient's age to complete this topic Procedures Procedure Name Priority Date/Time Associated Diagnosis Comments MG MAMMO DIGITAL DIAGNOSTIC W DERIK BILAT Routine 12/25/2024 3:12 PM EDT Encounter for screening mammogram for breast cancer BASIC METABOLIC PANEL STAT 09/15/2024 11:55 AM EST TAY DEXA AXIAL SKELETON Routine 03/22/2022 4:15 PM EDT Asymptomatic menopausal state EXTERNAL COLONOSCOPY REPORT Routine 09/07/2020 2:02 PM EST from Last 3 Months or Most Recently Relevant to Health Maintenance Results * MG Mammo Digital Diagnostic w Derik bilat (12/25/2024 3:12 PM EDT) Anatomical Region Laterality Modality Breast Bilateral Mammography 12/25/2024 3:21 PM EDT Impressions 12/25/2024 3:28 PM EDT No mammographic or sonographic evidence of new or recurrent malignancy. No suspicious imaging finding in the area of palpable concern in the 3 o'clock region right breast. This area should be managed on the basis of the clinical breast exam A negative mammogram in the presence of a clinically suspicious palpable abnormality does not preclude the possibility of malignancy or alter the indications for biopsy. ASSESSMENT: BI-RADS 2: BENIGN RECOMMENDATION(S): 1: Clinical correlation recommended RIGHT Continue annual screening mammography [facility] [address], [address] -------- FINAL REPORT -------- Dictated By: Cain Garcia Dictated Date: 12/25/2024 15:21 ET Assigned Physician: Cain Garcia Reviewed and Electronically Signed By: Cain Garcia Signed Date: 12/25/2024 15:28 ET Workstation ID: [id number] Transcribed By: Self Edit Transcribed Date: 12/25/2024 15:21 ET Narrative 12/25/2024 3:28 PM EDT EXAM: DIAGNOSTIC MAMMOGRAPHY, BILATERAL ULTRASOUND: DIAGNOSTIC ULTRASOUND, UNILATERAL RIGHT HISTORY: Abnormal clinical breast exam. Provider noted a 1 cm palpable abnormality in the 3 o'clock position 5 cm from the right nipple Personal history of left breast cancer COMPARISON: 12/25/23, 06/26/23, 12/21/22, 12/03/21, 07/27/20 TECHNIQUE: Synthesized CC and MLO projections of each breast. Tomosynthesis of each breast in the CC and MLO projections. ADDITIONAL IMAGING: Tomosynthesis of the left breast in the craniocaudal projection exaggerated toward the axilla High-frequency linear transducer ultrasound of the right breast targeted to the area of clinical concern. Computer-aided detection was employed with the [employer] 3-D. TISSUE DENSITY: There are scattered areas of fibroglandular density. (BI-RADS category B) FINDINGS: MAMMOGRAPHY: RIGHT BREAST: No suspicious mass. No suspicious calcification. No distortion. No suspicious abnormality in the 3 o'clock position. LEFT BREAST: There is trabecular thickening. There is skin thickening. There are surgical clips present. No new suspicious left breast finding ULTRASOUND: RIGHT BREAST 3 o'clock, 5 cm from nipple No suspicious mass. No suspicious area of altered echotexture. Procedure Note Cain Garcia MD - 06/09/2025 EXAM: DIAGNOSTIC MAMMOGRAPHY, BILATERAL ULTRASOUND: DIAGNOSTIC ULTRASOUND, UNILATERAL RIGHT HISTORY: Abnormal clinical breast exam. Provider noted a 1 cm palpableabnormality in the 3 o'clock position 5 cm from the right nipple Personal history of left breast cancer COMPARISON: 12/25/23, 06/26/23, 12/21/22, 12/03/21, 07/27/20 TECHNIQUE: Synthesized CC and MLO projections of each breast.Tomosynthesis of each breast in the CC and MLO projections. ADDITIONAL IMAGING: Tomosynthesis of the left breast in the craniocaudalprojection exaggerated toward the axilla High-frequency linear transducer ultrasound of the right breast targetedto the area of clinical concern. Computer-aided detection was employed with the [employer] AI 3-D. TISSUE DENSITY: There are scattered areas of fibroglandular density.(BI-RADS category B) FINDINGS: MAMMOGRAPHY: RIGHT BREAST: No suspicious mass. No suspicious calcification. No distortion. Nosuspicious abnormality in the 3 o'clock position. LEFT BREAST: There is trabecular thickening. There is skin thickening. There aresurgical clips present. No new suspicious left breast finding ULTRASOUND: RIGHT BREAST 3 o'clock, 5 cm from nipple No suspicious mass. No suspicious area of altered echotexture. IMPRESSION: No mammographic or sonographic evidence of new or recurrent malignancy. No suspicious imaging finding in the area of palpable concern in the 3o'clock region right breast. This area should be managed on the basis ofthe clinical breast exam A negative mammogram in the presence of a clinically suspicious palpableabnormality does not preclude the possibility of malignancy or alter theindications for biopsy. ASSESSMENT: BI-RADS 2: BENIGN RECOMMENDATION(S): 1: Clinical correlation recommended RIGHT Continue annual screening mammography [facility] at [address], [address] -------- FINAL REPORT -------- Dictated By: Cain Garcia Dictated Date: 12/25/2024 15:21 ET Assigned Physician: Cain Garcia Reviewed and Electronically Signed By: Cain Garcia Signed Date: 12/25/2024 15:28 ET Workstation ID: [id number] Transcribed By: Self Edit Transcribed Date: 12/25/2024 15:21 ET us Self Referral S[facility] IMG BI PROCEDURES Final Resul t * (ABNORMAL) Basic metabolic panel (09/15/2024 11:55 AM EST) Sodium 132(L) 133 - 145 mmol/L LAB CHEMISTRY METHOD 09/15/2024 12:39 PM [facility] Potassium 4.4 3.5 - 5.5 mmol/L LAB CHEMISTRY METHOD 09/15/2024 12:39 PM [facility] Chloride 97 96 - 110 mmol/L LAB CHEMISTRY METHOD 09/15/2024 12:39 PM [facility] CO2 31 21 - 32 mmol/L LAB CHEMISTRY METHOD 09/15/2024 12:39 PM [facility] Anion Gap 4 3 - 11 LAB CHEMISTRY METHOD 09/15/2024 12:39 PM [facility] Glucose 132(H) 70 - 100 mg/dL LAB CHEMISTRY METHOD 09/15/2024 12:39 PM [facility] BUN 10 5 - 25 mg/dL LAB CHEMISTRY METHOD 09/15/2024 12:39 PM [facility] Creatinine 0.81 0.50 - 1.10 mg/dL LAB CHEMISTRY METHOD 09/15/2024 12:39 PM [facility] eGFR 78 >=60 mL/min/1. 73m2 LAB CHEMISTRY METHOD 09/15/2024 12:39 PM EST [facility] Comment:Calculation based on the Chronic Kidney Disease Epidemiology Collaboration (CKD-EPI) equation refit without adjustment for race. BUN/Creatinine Ratio 12.3 LAB CHEMISTRY METHOD 09/15/2024 12:39 PM EST [facility] Calcium 9.9 8.5 - 10.5 mg/dL LAB CHEMISTRY METHOD 09/15/2024 12:39 PM EST [facility] Blood Venous blood specimen / Unknown Venipuncture / Unknown 09/15/2024 11:55 AM EST 09/15/2024 12:14 PM EST Stephen Kulkarni MD LAB BLOOD ORDERABLES Final Resu lt [facility] [address] [place] [address], * TAY DEXA AXIAL SKELETON (03/22/2022 4:15 PM EDT) Anatomical Region Laterality Modality Mammography 03/22/2022 9:59 AM EDT Narrative 03/22/2022 4:15 PM EDT [facility] Diagnostic Imaging Department [address] [place] [address] Patient: MABEL PIZARRO /Age/Sex: 1955 66 - F Unit#: [id number] Location/Status: SPDIMAM/REG CLI Mnemonic/Ordering Site: MAMDEXAAX/SPMAM Ordering Physician: NATHANIEL VERA MD [facility] Dexa Axial Skeleton - 03/22/22 - 1029 [facility] Dexa Axial Skeleton INDICATION: Postmenopausal, history of [...] FRAX estimate if patient has received treatment. [id number] Dictating Physician: BIRDIE NUNN MD Electronically Signed by: BIRDIE NUNN MD Dic Date/Time: 03/22/22 161 Sign date/Time: 03/22/22 1615 Procedure Note Birdie Nunn MD - 08/24/2022 [facility] Diagnostic Imaging Department [address] [place], [place] [id number] Patient: MABEL PIZARROO.B./Age/Sex: 1955 - 66 - F Unit#: [id number] Location/Status: SPDIMAM/REG CLI [facility]em[facility] Ordering Physician: NATHANIEL VERA MD [facility] Dexa Axial Skeleton - 03/22/22 - 1029 [facility] Dexa Axial Skeleton INDICATION: Postmenopausal, history of [...] than FRAXestimate if patient has received treatment. [id number] Dictating Physician: BIRDIE NUNN MD Electronically Signed by: BIRDIE NUNN MD Dic Date/Time: 03/22/22 1614 Sign date/Time: 03/22/22 1615 Nathaniel Prasad MD IMG BI PROCEDURES F inal Result * External Colonoscopy Report (09/07/2020 2:02 PM EST) Anatomical Region Laterality Modality Endoscopy Historical Provider GI~PROCEDURE ORDERABLES F inal Result from Last 3 Months or Most Recently Relevant to Health Maintenance [facility] Advance Directives Documents on File Type Date Recorded Patient Chiropractic Doctor Expl anation Health Care Decision (hx) 01/17/2022 [...] (hx) 12/04/2013 AD BOO DIRECTIVE Care Teams Regional Owner Operator Truck Driver Relationship Specialty Start Date End Date Trever Meeks MD [address] [place] [address] PCP - General Internal Medicine 01/06/22
--- OUTSIDE RECORDS SUMMARY | 2025-09-02 15:50 | XMS_ITS | Clinical Summary ---
Author Organization [facility] Prior to 02/01/[address] [place] [address] Care Team Providers Care Emergency Dept Tech Name Role Phone Trever Meeks MD Primary Care Provider [phone] Allergies Active Allergy Reactions Criticality Noted Date [...] 73 04/29/2024 2:50 PM EDT Temperature 36.9 C (98.4 F) 04/29/2024 2:50 PM EDT Respiratory Rate - - Oxygen Saturation 100% [...] (DEXA Scan) 2019 COVID-19 Vaccine (4 - 2024-2 6 season) 2025 08/10/2021, 10/30/2020, 10/09/2020 Influenza Vaccine (#1) 2025 09/12/2021 RSV Adult > 60+ Yrs or (1 - 1-dose 75+ series) 2029 Hepatitis B Vaccines Aged Out No long er eligible based on patient's age to complete this topic RSV Ped < 20 months Aged Out No longe r eligible based on patient's age to complete this topic Care Teams Emergency Dept Tech Relationship Specialty Start Date End Date Trever Meeks MD [address] [place] [address] PCP - General Internal Medicine 01/28/22
== END 2025-09-02 12:19 | disposition home or self-care (01) ==
LOC: HO.HSM 11:45
PROVIDERS: PCP Internal Medicine; Visit Provider Registered Nurse
DX: G40.909 Epilepsy, unspecified, not intractable, without status epilepticus (principal); G47.00 Insomnia, unspecified; M79.7 Fibromyalgia; G43.909 Migraine, unspecified, not intractable, without status migrainosus; R25.1 Tremor, unspecified; Z86.73 Personal history of transient ischemic attack (TIA), and cerebral infarction without residual deficits; G44.40 Drug-induced headache, not elsewhere classified, not intractable
CPT/HCPCS: 99214